=== PATIENT | male | born 1970 | race Caucasian/White ===

== ENCOUNTER 2019-10-27 13:26 | Outpatient (CLI) | payer OTHER, SELFPAY ==
--- NOTE | ~2019-10-27 | US_ITS ---
EXAMINATION: US art doppler w press LE BI DATE: 10/27/2019 14:16 INDICATION: Lateral lower extremity peripheral arterial occlusive disease with left toe numbness. Ris k factors of diabetes and hypercholesterolemia. TECHNIQUE: Segmental pressures and plethysmographic and Doppler waveforms of the brachial and lower e xtremity arteries were obtained. COMPARISON: None. FINDINGS: Right and left brachial artery pressures of 123 mm Hg and 131 mm Hg, respectively, are concordant (no rmal difference <= 30 mmHg). The right and left high-thigh pressure indices are 0.88 and 0.74, respec tively (normal > 1.2). The right ankle-brachial index (ABBY) is 0.97 (normal >= 0.9-1). The right great toe-brachial index (T BI) is 0.44 (normal >= 0.6-0.8). The right lower extremity segmental pressure gradients are normal (n ormal gradients <= 20-30 mmHg between adjacent levels on the same leg or the same levels on the two l egs). Arterial waveforms are triphasic at the right common femoral artery and biphasic in the more di stal arteries with brisk systolic upstrokes throughout. The left ABBY is 0.64. The left TBI is not assessed. The left lower extremity segmental pressure gradi ents are normal within the left lower limb but increased between the left [id number] popliteal ar kathleen, dorsalis pedis artery and posterior tibial artery relative to the contralateral arteries in the right lower leg. Arterial waveforms are biphasic throughout the arteries of the left lower limb. The systolic peaks appear dampened and broadened at the left superficial femoral and more distal arterie s relative to the arteries at the contralateral right lower limb however the systolic upstrokes remai n within normal limits. IMPRESSION: 1. Bilateral arterial occlusive disease with mildly decreased right TBI and with moderately decreased left ABBY. Reviewed, dictated and finalized at location A. T TURNER IMPRESSION: 1. Bilateral arterial occlusive disease with mildly decreased right TBI and wit h moderately decreased left ABBY.
== END 2019-10-27 13:27 | disposition home or self-care (01) ==
LOC: ANHIMG 13:29
PROVIDERS: PCP Family Medicine; Visit Provider Podiatrist Foot & Ankle Surgery
DX: I73.9 Peripheral vascular disease, unspecified (principal)
CPT/HCPCS: 93923

== ENCOUNTER 2021-05-05 01:35 | Day surgery (SDC) | payer OTHER, SELFPAY ==
[2021-04-26 13:18] VITALS: BMI 26.4
--- NOTE | 2021-05-04 11:24 | PM.HPGS ---
History of Present Illness History of Present Illness Consent: Risks, benefits, and alternatives have been discussed and questions answered. Patient agrees to proceed with procedure. Chief complaint: epigastric pain, neoplasm screening Narrative: Leodan Carranza Sr. is a 51 year old male who has had a great deal of abdominal discomfort with bloating and pressure sensation in the upper abdomen. He denies dysphagia or classic heartburn symptoms. He is due for colon cancer screening as well Review of Systems Review of Systems: All systems reviewed & are unremarkable except as noted in HPI and below PMFSH Past Medical History Medical History BMI 26.0-26.9,adult BMI 27.0-27.9,adult Stenosis of artery of left lower extremity Tobacco abuse Toe pain Family History Family History Father Family history of primary malignant neoplasm of liver Family history of malignant neoplasm Mother No problems noted. 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 Gender identity (if verbalized by the patient): Male Spiritual care concerns: No Meds Home Medications and Allergies Home Medications Medication Instructions Recorded Confirmed Type aspirin 81 mg tablet,delayed 81 mg PO DAILY 02/15/20 04/26/21 History release blood-glucose meter #1 ea 09/28/20 02/02/21 Rx lancets #100 ea 09/28/20 02/02/21 Rx montelukast 10 mg tablet 10 mg PO DAILY #90 tablet 10/05/20 04/26/21 Rx blood sugar diagnostic #50 ea 10/24/20 02/02/21 Rx flash glucose sensor #6 ea 11/02/20 02/02/21 Rx atorvastatin 20 mg tablet 20 mg PO DAILY #90 tablet 02/27/21 04/26/21 Rx empagliflozin [Jardiance] 25 mg PO DAILY 04/26/21 04/26/21 History Allergies Allergy/AdvReac Type Severity Reaction Status Date / Time No Known Allergies Allergy Verified 05/05/21 09:02 Exam Resp: Auscultation: clear to auscultation bilaterally Cardio: Rate: regular rate Rhythm: regular rhythm GI: GI Palp: Yes Soft to palpation and No Tenderness to palpation present (GI) Assessment and Plan Assessment and plan (1) Abdominal pain: Code(s): R10.9 - Unspecified abdominal pain Status: Acute Assessment and Plan: EGD with possible biopsy or dilatation or cautery. (2) Colon cancer screening: Code(s): Z12.11 - Encounter for screening for malignant neoplasm of colon Status: Acute Assessment and Plan: Colonoscopy with possible biopsy or polypectomy or cautery or injection of substances.
[2021-05-05 09:03] VITALS: BP 123/83; PULSE 83; RESP 18; TEMP 36.1; O2SAT 99; BMI 25.7
--- NOTE | 2021-05-05 09:05 | P.PNAN_ITS ---
Anes - Initial Pre Proc Eval Procedure: Operation Date: 05/05/21 09:30 Proposed Procedures p Esophagogastroduodenoscopy & Screening Colonoscopy - Stanley Ott MD Date/Time: 05/05/21 09:05 Surgeon: Stanley Ott MD Pre Op Diagnosis: epigastric pain, neoplasm screening Patient Data Age: 51 Gender: M Height: 1.8 m Weight: 83.8 kg Last Vital Signs Temp 36.1 C L 05/05/21 09:03 Pulse 83 05/05/21 09:03 Resp 18 05/05/21 09:03 BP 123/83 05/05/21 09:03 Pulse Ox 99 05/05/21 09:03 Allergies Allergy/AdvReac Type Severity Reaction Status Date / Time No Known Allergies Allergy Verified 05/05/21 09:02 Home Medications Medication Instructions Recorded Confirmed Type aspirin 81 mg tablet,delayed 81 mg PO DAILY 02/15/20 04/26/21 History release blood-glucose meter #1 ea 09/28/20 02/02/21 Rx lancets #100 ea 09/28/20 02/02/21 Rx montelukast 10 mg tablet 10 mg PO DAILY #90 tablet 10/05/20 04/26/21 Rx blood sugar diagnostic #50 ea 10/24/20 02/02/21 Rx flash glucose sensor #6 ea 11/02/20 02/02/21 Rx atorvastatin 20 mg tablet 20 mg PO DAILY #90 tablet 02/27/21 04/26/21 Rx empagliflozin [Jardiance] 25 mg PO DAILY 04/26/21 04/26/21 History Patient hx anesthesia problems: none Family hx anesthesia problems: none PMFSH Past Medical History Medical History BMI 26.0-26.9,adult BMI 27.0-27.9,adult Stenosis of artery of left lower extremity Tobacco abuse Toe pain Family History Family History Father Family history of primary malignant neoplasm of liver Family history of malignant neoplasm Mother No problems noted. 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 Questions were solicited and answers provided to the satisfaction of the patient/family/POA.
[2021-05-05] MEDS: LACTATED RINGERS 1,000 ML 150 ML IV CONT (09:10)
[2021-05-05 09:16] LABS: Glucose Point of Care 127 mg/dl (65-105)
--- NOTE | 2021-05-05 10:09 | SUR.OPER ---
EGD START 944, END 949 COLONOSCOPY START 954, END 1005
[2021-05-05 10:12] VITALS: BP 116/81; PULSE 69; RESP 17; O2SAT 95
[2021-05-05 10:21] VITALS: BP 124/81; PULSE 69; RESP 17; O2SAT 97
[2021-05-05 10:31] VITALS: BP 125/83; PULSE 67; RESP 17; O2SAT 100
== END 2021-05-05 10:55 | disposition home or self-care (01) ==
PROVIDERS: PCP Family Medicine; Visit Provider Internal Medicine Gastroenterology
PROC: 0DJ08ZZ Inspection of Upper Intestinal Tract, Via Natural or Artificial Opening Endoscopic (ICD-10-PCS; CPT 43235; principal; 2021-05-05 09:30)
DX: Z12.11 Encounter for screening for malignant neoplasm of colon (principal); D12.2 Benign neoplasm of ascending colon; R10.13 Epigastric pain; K21.00 Gastro-esophageal reflux disease with esophagitis, without bleeding; K29.60 Other gastritis without bleeding; K57.30 Diverticulosis of large intestine without perforation or abscess without bleeding; I70.202 Unspecified atherosclerosis of native arteries of extremities, left leg; Z87.891 Personal history of nicotine dependence; Z79.899 Other long term (current) drug therapy
CPT/HCPCS: 45385; 43239; 82948; 87081; 88305; J7120

== ENCOUNTER 2021-12-04 08:39 | Outpatient (CLI) | payer OTHER, SELFPAY ==
--- NOTE | ~2021-12-04 | US_ITS ---
EXAMINATION: US venous doppler LE BI EXAM DATE: 12/04/2021 11:00 INDICATION: I87.2 - Venous insufficiency (chronic) (peripheral). TECHNIQUE: Multiple grayscale, color flow and Doppler images of the lower extremity venous systems bi laterally were obtained and reviewed. Saphenous venous mapping. The exam was reviewed on 12/04/2021. There is no prior study for comparison. FINDINGS: Right side: The right common femoral, femoral and profunda veins demonstrate normal color flow, respi ratory variation, augmentation and compressibility. Compressibility, color flow confirmed within the right popliteal, posterior tibial, peroneal, and greater saphenous veins. Right Standing Venous Mapping: reflux seconds duration; vein size. Greater saphenous origin: 0 seconds; 4.6 mm. Greater saphenous mid thigh:------ 0 seconds; 1.7 mm. Greater saphenous below knee:--- 0 seconds; 1.4 mm. Lesser saphenous proximally:------ 0 seconds; 1.6 mm. Lesser saphenous distally: 0 seconds; 1.9 mm. Left side: The left common femoral, femoral and profunda veins demonstrate normal color flow, respira tory variation, augmentation and compressibility. Compressibility, color flow confirmed within the l eft popliteal, posterior tibial, peroneal, and greater saphenous veins. Left Standing Venous Mapping: reflux seconds duration; vein size. Greater saphenous origin: 0 seconds; 3.1 mm. Greater saphenous mid thigh:------ 0 seconds; 2.7 mm. Greater saphenous below knee:--- 0 seconds; 1.8 mm. Lesser saphenous proximally:------ 0 seconds; 2.7 mm. Lesser saphenous distally: 0 seconds; 1.6 mm. IMPRESSION: 1. No lower extremity deep venous thrombosis bilaterally. 2. Venous measurements as above. No reflux demonstrated. Reviewed, dictated and finalized at location B.
--- NOTE | ~2021-12-04 | US_ITS ---
EXAMINATION: US arterial ankle brachial ind EXAM DATE: 12/04/2021 11:01 INDICATION: Z82.49 - Family history of ischemic heart disease and oth... Leg pain, cramping. TECHNIQUE: Segmental pressures and plethysmographic and Doppler waveforms of the brachial and lower e xtremity arteries were obtained. There is no prior study for comparison. FINDINGS: Right and left brachial artery pressures of 126 mm Hg and 120 mm Hg, respectively, are concordant (no rmal difference <= 30 mmHg). RIGHT LEG: The ankle-brachial index (ABBY) is 1.03 (normal >= 0.9-1). The great toe-brachial index (TBI) is 0.68 (normal >= 0.65). The lower extremity ratios, segmental pressure gradients as follows; Dorsalis pedis: 0.98 (124 mmHg). Posterior tibial: 1.03 (130 mmHg). (Normal gradients <= 20-30 mmHg between adjacent levels on the same leg or the same levels on the two legs). Arterial waveforms are biphasic DP, monophasic PT. LEFT LEG: The ankle-brachial index (ABBY) is 1.09 (normal >= 0.9-1). The great toe-brachial index (TBI) is 0.22 (normal >= 0.65). The lower extremity ratios, segmental pressure gradients as follows; Dorsalis pedis: 0.89 (112 mmHg). Posterior tibial: 1.09 (137 mmHg). (Normal gradients <= 20-30 mmHg between adjacent levels on the same leg or the same levels on the two legs). Arterial waveforms are biphasic. IMPRESSION: 1. Right ankle-brachial index 1.03, normal. 2. Left ankle-brachial index 1.09, normal. 3. Segmental pressures as above. Reviewed, dictated and finalized at location B.
--- NOTE | ~2021-12-04 | US_ITS ---
EXAMINATION: US abdomen complete EXAM DATE: 12/04/2021 10:57 INDICATION: K76.0 - Fatty (change of) liver, not elsewhere classified TECHNIQUE: Multiple grayscale and Doppler images of the complete abdomen were obtained (by a technolo gist who performed the scan) and subsequently reviewed. Comparison is made to prior examination from 04/20/2016. FINDINGS: The abdominal aorta is normal in caliber. Visualized portion IVC is patent. The pancreatic head a nd body are normal in appearance. The pancreatic tail is not visualized. Mildly echogenic liver parenchyma, hepatic steatosis. There are no focal liver lesions identified. There is no evidence of intrahepatic biliary duct dilation. Portal venous flow was seen in the hepa topedal, normal direction and has normal Doppler waveform. Common bile duct measures 3 mm, which is normal. The gallbladder wall is normal in thickness, with ex pected amount of distention. No sonographic evidence of pericholecystic fluid. There is no cholelit hiases. Technologist performing exam reports patient did not demonstrate sonographic Calles's sign. Please note that this sign is less reliable in patients who have received pain medication. Right kidney: There is normal contour and echogenicity. It measures 11.9 x 3.6 x 5.3 centimeters. There are no focal renal lesions identified. There is no hydronephrosis. Left kidney: There is normal contour and echogenicity. It measures 12.3 x 4.6 x 5.9 centimeters. T here are no focal renal lesions identified. There is no hydronephrosis. The spleen measures 13.1 centimeters and is morphologically normal. IMPRESSION: Hepatic steatosis. Reviewed, dictated and finalized at location B. IMPRESSION: Hepatic steatosis.
== END 2021-12-04 08:40 | disposition home or self-care (01) ==
LOC: ANHIMG 08:41
PROVIDERS: PCP Family Medicine; Visit Provider Nurse Practitioner Family
DX: K76.0 Fatty (change of) liver, not elsewhere classified (principal); I87.2 Venous insufficiency (chronic) (peripheral); I70.202 Unspecified atherosclerosis of native arteries of extremities, left leg; Z82.49 Family history of ischemic heart disease and other diseases of the circulatory system
CPT/HCPCS: 76700; 93922; 93970

== ENCOUNTER 2023-01-10 10:37 | Inpatient (IN) | payer OTHER, SELFPAY ==
[2023-01-10] VITALS (24 sets, daily range): BP systolic 102–173; BP diastolic 68–100; PULSE 68–85; RESP 14–24; TEMP 36.6–37.1; O2SAT 94–100; BMI 27.9
--- NOTE | 2023-01-10 | ECHO_ITS ---
Patient Info Name: Leodan Carranza Age: 52 years : 1970 Gender: Male Ht: 71 in Wt: 195 lbs BSA: 2.12 m2 HR: 85 bpm BP: 107 / 89 mmHg Heart Rhythm: Sinus Rhythm Technical Quality: Fair Exam Date: 01/10/2023 3:37 PM Exam Location: [facility] Pulmonary Exam Room: ICU10 Patient Status: Inpatient Admit Date: 01/10/2023 Staff Ordering Physician: Sherif Silva MD (bre/renan) Permastone Mechanic: ICU Attending Provider: Sherif Silva MD (bre/renan) Referring Physician: Ricardo ARAUJO; Exam Type: CA echo dop color flow w con Study Info Indications - S/P STEMI Complete two-dimensional, color flow and Doppler transthoracic echocardiogram is performed with contrast to opacify the left ventricle and to improve the deliniation of the left ventricle endocardial borders. Contrast/Agitated Saline Contrast/Ag. Saline: Definity Amount: 2.00 ml Administered By: Roxanne Burnham Existing IV Access: Yes IV Access Condition: patent with no signs of infiltration Summary 1. Left ventricular chamber dimension is normal. 2. Left ventricular systolic function is moderately reduced, estimated at 40-45%. 3. There is mildly increased left ventricular wall thickness. 4. The left ventricular diastolic function is grade I diastolic dysfunction. 5. The inferior wall, basal inferoseptal, mid inferoseptal, basal inferolateral wall, and mid inferolateral wall are hypokinetic. 6. There is mild mitral valve regurgitation. 7. There is mild tricuspid valve regurgitation. Left Ventricle Left ventricular chamber dimension is normal. Left ventricular systolic function is moderately reduced, estimated at 40-45%. There is mildly increased left ventricular wall thickness. The left ventricular diastolic function is grade I diastolic dysfunction. The inferior wall, basal inferoseptal, mid inferoseptal, basal inferolateral wall, and mid inferolateral wall are hypokinetic. All other lawrence appear normal. Right Ventricle Right ventricular chamber dimension is normal. Right ventricular systolic function is normal. Left Atria Left atrial chamber dimension is normal. Right Atria Right atrial chamber dimension is normal. Atrial Septum Intact interatrial septum visualized by color flow imaging. Aortic Valve The aortic valve is trileaflet. There is mild aortic valve sclerosis. There is no aortic valve stenosis. There is trace aortic valve regurgitation. Pulmonic Valve The pulmonic valve is normal. There is no pulmonic valve stenosis. There is trace pulmonic regurgitation. Mitral Valve The mitral valve has normal leaflets. There is no mitral valve stenosis. There is mild mitral valve regurgitation. Tricuspid Valve The tricuspid valve leaflets are normal. There is no significant tricuspid valve stenosis. There is mild tricuspid valve regurgitation. No pulmonary hypertension, estimated pulmonary arterial systolic pressure is 20 mmHg. Pericardium/Pleural The pericardium appears normal. There is no pericardial effusion. Inferior Vena Cava Normal inferior vena cava with >50% collapse upon inspiration consistent with normal right atrial pressure, 10 mmHg. Aorta The aortic root size at the sinus of Valsalva is normal. The prox ascending aorta size is normal. Left Ventricular Outflow Tract Name Value Normal LVOT 2D
--- NOTE | 2023-01-10 10:38 | ECG_ITS ---
Measurements Intervals [place] Rate: 78 P: 54 [place]: 174 QRS: 72 QRSD: 107 T: 87 QT: 361 QTc: 414 Interpretive Statements SINUS RHYTHM BORDERLINE R WAVE PROGRESSION, ANTERIOR LEADS INFERIOR ST ELEVATION MYOCARDIAL INJURY- ACUTE POSTERIOR INFARCT- ACUTE ABNORMAL ECG NO PREVIOUS ECG AVAILABLE FOR COMPARISON Electronically Signed On 01-10-2023 11:47:53 CDT by Noel Galicia D.O.
[2023-01-10] MEDS: ASPIRIN 81 MG CHEWABLE TABLET 324 MG PO (10:48)
--- NOTE | 2023-01-10 10:51 | ED.CHESTPAIN ---
HPI - Chest Pain General Chief Complaint: Chest Pain Stated Complaint: cp Time Seen by Provider: 01/10/23 10:41 History of Present Illness HPI narrative: Patient is a 52-year-old male who presents ER with chest pain. Began 45 minutes prior to arrival. He was drinking when he had sudden onset sharp chest pain. No radiation. No nausea or vomiting. 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 They had not yet been contacted about any additional follow-up. When symptoms arose that he felt he needed to be evaluated and came to the closest hospital. No aggravating or alleviating factors. He has been having intermittent chest pain over the last week. Patient has history of left iliac stent. Related Data Home Medications Medication Instructions Recorded Confirmed aspirin 81 mg tablet,delayed 81 mg PO DAILY 02/15/20 08/30/22 release (Adult Aspirin Regimen) Allergies Allergy/AdvReac Type Severity Reaction Status Date / Time No Known Allergies Allergy Verified 01/10/23 10:47 Review of Systems Review of Systems: All systems reviewed & are unremarkable except as noted in HPI and below Constitutional: Constitutional: Denies chills and Denies fever(s) Cardiovascular: Cardiovascular: Reports chest pain, Denies rapid heart rate and Denies radiating jaw, neck or arm pain Respiratory: Respiratory: Denies cough and Denies dyspnea Gastrointestinal: Gastrointestinal: Denies abdominal pain, Denies nausea and Denies vomiting Neurologic: Denies focal weakness and Denies numbness PMFSH Past Medical History Medical History (Updated 01/10/23 @ 10:56 by Ajit Manning MD) Hypertriglyceridemia IBD (inflammatory bowel disease) PAD (peripheral artery disease) Stenosis of artery of left lower extremity Tobacco abuse Toe pain Family History Family History Father Family history of primary malignant neoplasm of liver Family history of malignant neoplasm Mother No problems noted. Sibling Aneurysm Other Diabetes mellitus Family history of cardiovascular disease Hypertension Social History Social History Smoking packs per day: 1.5 Smoking cigarettes per day: 30.0 Years smoked: 35 Smoking pack-years: 52.50 Smoking status: Smoker, status unknown Tobacco type: cigarettes Second hand tobacco smoke exposure: Yes Alcohol intake: never Substance use: never Substance use type: does not use Lack of Transportation: No Lack of Food: Never True Current Housing: I Have Housing Concerned About Future Housing: No Difficulty Paying Gas/Electric Bills: No Difficulty Paying for Meds: No Currently Unemployed: No Education: High School Diploma/GED Difficulty w/ Childcare or Family Care: No Living arrangements: with family Occupation/Education: occupation 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 HEAD: Normocephalic, atraumatic. EYES: PERRL and EOMI. ENT: Mucous membranes moist. CHEST: Clear to auscultation. No respiratory distress. HEART: Regular rate and rhythm. Normal peripheral pulses. ABDOMEN: Soft, nontender, nondistended. EXTREMITIES: Normal range of motion. No edema. SKIN: Warm, dry, no rash. NEURO: Alert and oriented x3. PSYCH: Normal mood and affect. Course Course Emergency Course: STEMI activation made upon receiving EKG. Dr. Silva at bedside and will take patient to Business Continuity Analyst. Patient will receive oral Brilinta/aspirin and also IV heparin. at bedside and educated on treatment plan. Vital Signs Vital signs: Vital Signs Temperature 98.0 F 01/10/23 10:41 Pulse Rate 78 01/10/23 10:
--- NOTE | 2023-01-10 10:54 | PC.NURSE ---
To cardiac labor service representative with cath team.
[2023-01-10 10:57] LABS: Basophils Absolute Auto 0.1 K/mm3 (0.0-0.1); Basophils Percent Auto 0.8 % (0.2-1.2); Eosinophils Absolute Auto 0.3 K/mm3 (0-0.3); Eosinophils Percent Auto 2.6 % (0-4.4); Hematocrit 47.6 % (42.0-52.0); Hemoglobin 16.4 g/dL (14.0-18.0); Immature Granulocyte Absolute 0.04 K/mm3 (0.00-0.031); Immature Granulocyte Percent A 0.4 % (0-0.5); Lymphocytes Absolute Auto 3.08 K/mm3 (0.9-3.2); Mean Corpuscular HGB Conc 34.5 g/dl (32-36); Mean Corpuscular Hemoglobin 33.7 pg (26-34); Mean Corpuscular Volume 97.9 fl (80-100); Mean Platelet Volume 9.4 fl (7.4-10.4); Monocytes Absolute Auto 0.9 K/mm3 (0.1-0.6); Monocytes Percent Auto 8.2 % (2.6-8.5); Neutrophils Absolute Auto 6.3 K/mm3 (1.3-6.7); Platelet Count Result 257 k/mm3 (150-375); Red Blood Count 4.86 M/mm3 (4.6-6.20); Red Cell Distribution Width 13.2 % (11.5-14.5); White Blood Count 10.6 K/mm3 (4.5-10.0)
--- NOTE | 2023-01-10 10:59 | PM.IMHP ---
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 He had a stress test a couple days ago which was reportedly abnormal. He states that he has been having off and on chest pressure about 3 weeks. Chest pressure has been occurring with and without activity lasting for less than 1 minute. Since his stress test however he is had significantly more severe and longer lasting pain in his chest and it does radiate into his back. This morning he had chest pain that was severe, sharp and radiating to his back that started about an hour to hour and half ago. He was also diaphoretic, short of breath. He denies any recent syncope, paroxysmal nocturnal dyspnea, orthopnea, edema, palpitations. Came to the ER where he was found have inferior posterior ST-elevation. STEMI was called. I saw the patient in ER. He is currently pain-free Review of Systems Review of Systems: All systems reviewed & are unremarkable except as noted in HPI and below Constitutional: Constitutional: Denies body ache(s) Eyes: Eyes: Denies blurry vision ENT: Reports Normal hearing present Cardiovascular: Cardiovascular: Reports chest pain and Reports diaphoresis Respiratory: Respiratory: Denies chest congestion Gastrointestinal: Gastrointestinal: Denies abdominal pain Genitourinary: Genitourinary: Denies hematuria Musculoskeletal: Musculoskeletal: Denies back pain Integumentary/Breasts: Skin/Breast: Denies dry skin Neurologic: Denies Abnormal speech present Psychiatric: Psychiatric: Reports anxiety Endocrine: Endocrine: Denies flushing Hematologic/Lymphatic: Hematologic/Lymphatic: Denies easy bleeding Allergic/Immunologic: Allergic/Immunologic: Denies GI upset with certain foods and Denies tongue swelling PMFSH Past Medical History Medical History Hypertriglyceridemia IBD (inflammatory bowel disease) PAD (peripheral artery disease) Stenosis of artery of left lower extremity Tobacco abuse Toe pain Family History Family History Father Family history of primary malignant neoplasm of liver Family history of malignant neoplasm Mother No problems noted. Sibling Aneurysm Other Diabetes mellitus Family history of cardiovascular disease Hypertension Social History Social History Smoking packs per day: 1.5 Smoking cigarettes per day: 30.0 Years smoked: 35 Smoking pack-years: 52.50 Smoking status: Smoker, status unknown Tobacco type: cigarettes Second hand tobacco smoke exposure: Yes Alcohol intake: never Substance use: never Substance use type: does not use Lack of Transportation: No Lack of Food: Never True Current Housing: I Have Housing Concerned About Future Housing: No Difficulty Paying Gas/Electric Bills: No Difficulty Paying for Meds: No Currently Unemployed: No Education: High School Diploma/GED Difficulty w/ Childcare or Family Care: No Living arrangements: with family Occupation/Education: occupation 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
[2023-01-10 11:06] LABS: Alanine Aminotransferase 42 U/L (6-50); Albumin Level 4.8 g/dL (3.5-5.1); Alkaline Phosphatase 124 U/L (38-126); Anion Gap 9 mmol/L (8-16); Aspartate Amino Transferase 33 U/L (17-59); Bilirubin,Total 0.6 mg/dL (0.2-1.3); Blood Urea Nitrogen 12 mg/dL (9-20); Calcium 9.7 mg/dL (8.4-10.2); Carbon Dioxide 28 mmol/L (22-30); Chloride 102 mmol/L (98-107); Estimated Glomerular Filt Rate > 60; Glucose 139 mg/dL (65-110); Lipase 340 U/L (23-300); Potassium 4.1 mmol/L (3.4-5.0); Sodium 139 mmol/L (137-145)
[2023-01-10 11:07] LABS: INR 0.9; Prothrombin Time 12.7 Seconds (11.1-14.7)
[2023-01-10 11:08] LABS: Partial Thromboplastin Time 32.1 SECONDS (22.3-36.8)
[2023-01-10 11:21] LABS: Troponin I 0.039 ng/mL (0.000-0.034)
[2023-01-10] MEDS: SODIUM CHLORIDE 0.9% IV 1,000 ML 125 ML IV CONT (13:15)
[2023-01-10 13:17] LABS: Cholesterol 145 mg/dL (0-200); HDL Direct 43 mg/dL; Triglycerides 123 mg/dL (<150)
--- NOTE | 2023-01-10 13:17 | PC.NURSE ---
This patient, Leodan Carranza , was admitted to Intensive Care Unit-10. Patient/family oriented to hospital policies and general routines including ID bracelet, bed and alarms, visiting hours, pain management, procedures, bathroom and other care routines, personal items, smoking policy, room service/diet, and visiting hours. Information on how to activate the Rapid Response Team has been discussed. Patient/Family are encouraged to report perceived risks to care and to ask questions if they do not understand what they are told or what they should do.
[2023-01-10 13:24] LABS: Hemoglobin A1C 6.8 % (<5.7)
[2023-01-10 13:27] LABS: LDL Cholesterol Direct 81 mg/dL
--- NOTE | 2023-01-10 13:34 | WPDCNINT ---
Assessment and Plan Assessment and plan (1) ST elevation (STEMI) myocardial infarction: Code(s): I21.3 - ST elevation (STEMI) myocardial infarction of unspecified site Status: Acute Assessment and Plan: Patient presented with chest pain, radiating by oxygen with shortness of breath and diaphoresis. EKG in the ER showed inferior ST-elevation NH. patient was taken to the cardiac labor relations specialist where he had PTCA/PCI with RADHA x1 to the RCA. -cardiology following the patient -continue aspirin, atorvastatin, Brilinta -echocardiogram has been ordered (2) PAD (peripheral artery disease): Code(s): I73.9 - Peripheral vascular disease, unspecified Status: Acute Assessment and Plan: History of left lower extremity stenting (3) Hyperlipidemia associated with type 2 diabetes mellitus: Code(s): E11.69 - Type 2 diabetes mellitus with other specified complication; E78.5 - Hyperlipidemia, unspecified Status: Acute Assessment and Plan: Will order Accu-Cheks and sliding scale insulin (4) Tobacco use disorder: Code(s): F17.200 - Nicotine dependence, unspecified, uncomplicated Status: Acute Assessment and Plan: Patient states he quit smoking 2 months ago Plan DVT prophylaxis: Status post cardiac catheterization Stress ulcer prophylaxis: Protonix due to patient having heartburn Nutrition: Heart healthy diet Code Status: Full code Critical Care Time Spent: 48 minutes Discussed with patient and his at bedside and updated them with the plan of care. The was asking if the good ultrasound of the heart to which has did tell him that it has been ordered and should be done either today or tomorrow. I answered all questions Due to a high probability of clinically significant, life threatening deterioration, the patient required my highest level of preparedness to intervene emergently and I personally spent this critical care time directly and personally managing the patient. This critical care time included obtaining a history; examining the patient; pulse oximetry; ordering and review of studies; arranging urgent treatment with development of a management plan; evaluation of patient's response to treatment; frequent reassessment; and discussions with other providers. It was exclusive of separately billable procedures and treating other patients and teaching time. Please see Assessment and Plan section and the rest of the note for further information on patient assessment and treatment This dictation may have been done utilizing a voice recognition system. Attempts have been made to correct errors. However, there may be uncorrected grammatical, spelling, and recognitions errors present. Electronic Warfare Specialist Consult Note Consult date: 01/10/23 Reason for consult: Inferior wall STEMI, chest pain HPI: Leodan Carranza Sr. is a 52 year old male with past medical history of hypertriglyceridemia, inflammatory bowel disease, peripheral artery disease, stent is of artery of left lower extremity, tobacco use presented the ED on 01/10/2023 with complaints of chest pain which worsened early this morning. Patient complained of chest pressure which was radiating to the back and started an hour and a half prior to arrival to the patient also complained of shortness of breath and diaphoresis. EKG in the ER showed inferior posterior ST-elevation NH, code STEMI was called and patient was taken to the cardiac labor relations specialist. Patient had a PTCA/PCI with RADHA x1 to the RCA. According to the rim buster, it was a challenging case as his RCA was calcified. -off note: Patient has had on and off chest pain/pressure about 3 weeks and had recent stress test at [facility] a couple of days ago which was reported abnormal. Patient seen and examined the ICU upon arrival, pleasant gentleman, in no acute distress. Denies any chest pain, shortness a breath or abdominal pain. Continues to have some burning sensat
[2023-01-10] MEDS: PANTOPRAZOLE SODIUM IV 40 MG VIAL IV PUSH (13:55)
[2023-01-10 14:42] LABS: Glucose Point of Care 100 mg/dl (65-105)
--- NOTE | 2023-01-10 14:50 | WPDMODSED ---
Moderate Sedation Note-Pt Data Patient Data Diagnosis: Inferior STEMI Present Complaint: Inferior STEMI Procedure to be performed/Plan: Primary PCI Allergies Allergy/AdvReac Type Severity Reaction Status Date / Time No Known Allergies Allergy Verified 01/10/23 10:47 Home Medications Medication Instructions Recorded Confirmed Type aspirin 81 mg tablet,delayed 81 mg PO DAILY 02/15/20 01/10/23 History release (Adult Aspirin Regimen) blood-glucose meter #1 ea 09/28/20 08/30/22 Rx lancets #100 ea 09/28/20 08/30/22 Rx blood sugar diagnostic (Blood #50 ea 10/24/20 08/30/22 Rx Glucose Test strips) flash glucose sensor (FreeStyle #6 ea 11/02/20 08/30/22 Rx Soni 2 Sensor kit) empagliflozin 25 mg tablet 25 mg PO DAILY #1 tablet 08/30/22 01/10/23 Rx (Jardiance) atorvastatin 40 mg tablet 40 mg PO DAILY 01/10/23 01/10/23 History dulaglutide 3 mg/0.5 mL 3 mg subcut WEEKLY 01/10/23 01/10/23 History subcutaneous pen injector (Trulicity) glimepiride 2 mg tablet 2 mg PO DAILY 01/10/23 01/10/23 History montelukast 10 mg tablet 10 mg PO HS 01/10/23 01/10/23 History (Singulair) pramipexole 0.5 mg tablet 0.5 mg PO HS 01/10/23 01/10/23 History Current Medications: Active Medications Aspirin (Aspirin 81 Mg Enteric Tablet) 81 mg PO QAM JOSÉ LUIS Atorvastatin Calcium (Atorvastatin 40 Mg Tablet) 80 mg PO DAILY JOSÉ LUIS Dextrose (Dextrose 50% 25 Gm/50 Ml Syringe) 12.5 gm IV PUSH PRN PRN; Protocol PRN Reason: Hypoglycemia Glucagon (Glucagon For Inj 1 Mg Vial) 1 mg IM PRN PRN; Protocol PRN Reason: Hypoglycemia Glucose (Glucose Oral Gel 15 Gm Of Glucse In 37.5 Gm Tube) 15 gm PO PRN PRN; Protocol PRN Reason: Hypoglycemia Sodium Chloride (Normal Saline Iv) 1,000 mls @ 125 mls/hr IV CONT .Q8H ONE Stop: 01/10/23 20:54 Last Admin: 01/10/23 13:15 Dose: 125 mls/hr Dextrose (Dextrose 5% 1,000 Ml) 1,000 mls @ 100 mls/hr IVPB PRN PRN; Protocol PRN Reason: Hypoglycemia Insulin Aspart (Insulin Aspart (*Bkc) 100 Units/Ml) 3 - 6 units SUB-Q TIDWM JOSÉ LUIS; Protocol Pantoprazole Sodium (Pantoprazole Sodium Iv 40 Mg Vial) 40 mg IV PUSH QAM JOSÉ LUIS Perflutren Lipid Microsphere (Perflutren Lipid Microspheres 1.5 Ml Vial Diluted To 10 Ml Total Volume) 0 ml IV PUSH ONCE PRN; Protocol PRN Reason: adequate visualization Stop: 01/12/23 12:57 Ticagrelor (Ticagrelor 90 Mg Tablet) 90 mg PO Q12HR JOSÉ LUIS Sedation/Anesthesia: No previous sedation/anesthesia problems (including family history). [facility] Past Medical History Medical History Hypertriglyceridemia IBD (inflammatory bowel disease) PAD (peripheral artery disease) Stenosis of artery of left lower extremity Tobacco abuse Toe pain Family History Family History Father Family history of primary malignant neoplasm of liver Family history of malignant neoplasm Mother No problems noted. Sibling Aneurysm Other Diabetes mellitus Family history of cardiovascular disease Hypertension Social History Social History Smoking packs per day: 1.5 Smoking cigarettes per day: 30.0 Years smoked: 35 Smoking pack-years: 52.50 Smoking status: Former smoker Second hand tobacco smoke exposure: Yes Alcohol intake: never Substance use: never Substance use type: does not use Lack of Transportation: No Lack of Food: Never True Current Housing: I Have Housing Concerned About Future Housing: No Difficulty Paying Gas/Electric Bills: No Difficulty Paying for Meds: No Currently Unemployed: No Education: Don't Know Difficulty w/ Childcare or Family Care: No Living arrangements: with family Occupation/Education: occupation 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
--- NOTE | 2023-01-10 14:51 | WPDCARDPROC ---
Cardiac Cath Procedure Note Date of procedure:: 01/10/23 Performing physician:: CATHETERIZATION LABORATORY REPORT Procedure Date: 01/10/2023 [facility]: Sherif Silva M.D., [facility]? Referring Physician: Ajit Manning M.D. ([facility]) Anesthesia: Versed and Fentanyl were ordered and given in my presence at 11:08, procedure ended at 12:48. Supervision of nurse monitored moderate sedation with Versed and Fentanyl was provided for 100minutes. Total of Versed 2mg and Fentanyl 50mcg were administered by the Tomato Grader RN Leonie Montgomery. Pre-op Diagnosis: Inferior STEMI Post-op Diagnosis: Calcific 99% stenosis of the mid RCA s/p PCI with placement of RADHA x 1 Mild non-obstructive disease of the mid LAD Procedure(s): 1. Moderate sedation 2. Ultrasound-guided access of the right radial artery 3. Coronary angiography 4. PCI of the mid RCA with RADHA x 1 Access Site: Right radial artery Brief History and Clinical Indications: Patient is a 52 year old male with diabetes and peripheral vascular disease who is referred for emergent cardiac cath for inferior STEMI. All risks, benefits and alternatives to left heart catheterization with or without percutaneous coronary intervention was discussed at length with the patient. Risk of complications including but not limited to bleeding, infection, arrhythmia, stroke, worsening kidney function, blood loss, groin hematoma, limb loss, emergency coronary artery bypass grafting, and even were discussed with the patient and all questions were answered. The patient understood and wished to proceed. Time out called, patient name, date of , medical record number, allergies, procedure performed, identify [facility], patient and staff member concurred with accurate data, procedure carried on. Findings: LEFT HEART CATHETERIZATION FINDINGS: 1. Left main: Calcifications seen in the left main. The left main coronary artery is widely patent without any significant obstructive disease. 2. Left anterior descending: Calcifications seen in the proximal-mid LAD. The mid LAD has a focal 40% calcific stenosis. Remainder of the LAD has luminal irregularities. The first diagonal branch has mild disease without any significant obstructive angiographic disease. 3. Left circumflex: The left circumflex artery and the main marginal branches have mild luminal irregularities without any significant obstructive angiographic disease. 4. Right coronary artery: The RCA is the dominant vessel. Calcifications seen throughout the RCA. The proximal RCA has luminal irregularities. There is a tortuous bend in the RCA after the proximal segment. The mid RCA has a calcific 99% stenosis. There is MARYCARMEN 2 flow distally in the vessel. Remainder of the RCA without obstructive disease. Description of Procedure and PCI: Patient transferred to dye lab technician room. Prepped and draped in usual sterile fashion. 2% lidocaine injected subcutaneously in right wrist area. 22-gauge venipuncture catheter used to access the right radial artery with the Seldinger technique. 6-FR slender sheath placed in right radial artery. Nitroglycerine and Verapamil were given intraarterial through the sheath. Versacore wire advanced under fluoroscopy 5F Tig 4 diagnostic catheter engaged Left Main Coronary Artery. 5F Tig 4 diagnostic catheter engaged Right Coronary Artery Multiple orthogonal angiogram obtained and reviewed Hemostasis was achieved by application of TR band. Angiomax used for anticoagulation. 6F JR 4 guide catheter was used to intubate the RCA. 0.014 [place] coronary wire was passed in to the distal RCA. The lesion was pre-dilated with a 2.5mm x 15mm balloon inflated to high KASSANRDA. Multiple balloon inflations done. IVUS catheter was advanced into the proximal RCA, but we were unable to advance the IVUS catheter past the proximal tortuosity without losing guide support. From the IVUS images we did obtain proximal to the culprit lesion,
[2023-01-10] MEDS: PERFLUTREN LIPID MICROSPHERES 1.5 ML VIAL DILUTED TO 10 ML TOTAL VOLUME IV PUSH (16:15)
[2023-01-10 19:28] LABS: Glucose Point of Care 143 mg/dl (65-105)
[2023-01-10] MEDS: TICAGRELOR 90 MG TABLET PO (21:57)
[2023-01-10] MEDS: PRAMIPEXOLE 0.5 MG TABLET PO (21:57)
[2023-01-11] VITALS (20 sets, daily range): BP systolic 105–136; BP diastolic 66–92; PULSE 66–104; RESP 11–21; TEMP 36.3–37.3; O2SAT 91–97
[2023-01-11 04:43] LABS: Basophils Absolute Auto 0.1 K/mm3 (0.0-0.1); Basophils Percent Auto 0.5 % (0.2-1.2); Eosinophils Absolute Auto 0.2 K/mm3 (0-0.3); Eosinophils Percent Auto 1.9 % (0-4.4); Hematocrit 45.8 % (42.0-52.0); Hemoglobin 15.6 g/dL (14.0-18.0); Immature Granulocyte Absolute 0.03 K/mm3 (0.00-0.031); Immature Granulocyte Percent A 0.3 % (0-0.5); Lymphocytes Percent Auto 22.2 % (18.3-44.2); Mean Corpuscular HGB Conc 34.1 g/dl (32-36); Mean Corpuscular Hemoglobin 33.5 pg (26-34); Mean Corpuscular Volume 98.3 fl (80-100); Mean Platelet Volume 9.5 fl (7.4-10.4); Monocytes Absolute Auto 0.7 K/mm3 (0.1-0.6); Monocytes Percent Auto 6.4 % (2.6-8.5); Neutrophils Absolute Auto 7.8 K/mm3 (1.3-6.7); Neutrophils Percent Auto 68.7 % (45.5-73.1); Platelet Count Result 229 k/mm3 (150-375); Red Blood Count 4.66 M/mm3 (4.6-6.20); Red Cell Distribution Width 13.2 % (11.5-14.5); White Blood Count 11.3 K/mm3 (4.5-10.0)
[2023-01-11 05:00] LABS: Alanine Aminotransferase 41 U/L (6-50); Albumin Level 4.6 g/dL (3.5-5.1); Alkaline Phosphatase 100 U/L (38-126); Anion Gap 8 mmol/L (8-16); Aspartate Amino Transferase 58 U/L (17-59); Bilirubin,Total 0.7 mg/dL (0.2-1.3); Blood Urea Nitrogen 9 mg/dL (9-20); Calcium 9.1 mg/dL (8.4-10.2); Carbon Dioxide 22 mmol/L (22-30); Chloride 108 mmol/L (98-107); Estimated CRCL calculation 115 ml/min; Estimated Glomerular Filt Rate > 60; Glucose 120 mg/dL (65-110); Magnesium 2.2 mg/dL (1.6-2.3); Phosphorus 3.6 mg/dL (2.5-4.5); Potassium 4.2 mmol/L (3.4-5.0); Sodium 138 mmol/L (137-145)
[2023-01-11] MEDS: ASPIRIN 81 MG ENTERIC TABLET PO (08:07)
[2023-01-11] MEDS: TICAGRELOR 90 MG TABLET PO ×2 (08:07→20:16)
[2023-01-11] MEDS: PANTOPRAZOLE SODIUM IV 40 MG VIAL IV PUSH (08:07)
[2023-01-11] MEDS: ATORVASTATIN 40 MG TABLET 80 MG PO (08:07)
[2023-01-11 08:10] LABS: Glucose Point of Care 138 mg/dl (65-105)
[2023-01-11 11:53] LABS: Glucose Point of Care 163 mg/dl (65-105)
--- NOTE | 2023-01-11 12:16 | WPDINTPN ---
Progress Note: A&P Assessment and Plan (1) ST elevation (STEMI) myocardial infarction: Code(s): I21.3 - ST elevation (STEMI) myocardial infarction of unspecified site Status: Acute Assessment and Plan: Patient presented with chest pain, radiating by oxygen with shortness of breath and diaphoresis. EKG in the ER showed inferior ST-elevation [place]. patient was taken to the cardiac biology laboratory assistant where he had PTCA/PCI with RADHA x1 to the RCA. -cardiology following the patient -continue aspirin, atorvastatin, Brilinta 01/10/2023 echocardiogram: LV systolic function moderately reduced, EF 40-45%, grade 1 diastolic dysfunction, ?inferior wall, basal inferoseptal, mid inferoseptal, and mid inferolateral wall are hypokinetic (2) PAD (peripheral artery disease): Code(s): I73.9 - Peripheral vascular disease, unspecified Status: Acute Assessment and Plan: History of left lower extremity stenting (3) Hyperlipidemia associated with type 2 diabetes mellitus: Code(s): E11.69 - Type 2 diabetes mellitus with other specified complication; E78.5 - Hyperlipidemia, unspecified Status: Acute Assessment and Plan: Continue Accu-Cheks and sliding scale insulin -hemoglobin A1c 6.8 this admission (4) Tobacco use disorder: Code(s): F17.200 - Nicotine dependence, unspecified, uncomplicated Status: Acute Assessment and Plan: Patient states he quit smoking 2 months ago Plan DVT prophylaxis: Status post cardiac catheterization Stress ulcer prophylaxis: Protonix Nutrition: Heart healthy diet Code Status: Full code Critical Care Time Spent: 32 minutes Discussed with patient and his at bedside and updated them with the plan of care. The was asking if the good ultrasound of the heart to which has did tell him that it has been ordered and should be done either today or tomorrow. I answered all questions Due to a high probability of clinically significant, life threatening deterioration, the patient required my highest level of preparedness to intervene emergently and I personally spent this critical care time directly and personally managing the patient. This critical care time included obtaining a history; examining the patient; pulse oximetry; ordering and review of studies; arranging urgent treatment with development of a management plan; evaluation of patient's response to treatment; frequent reassessment; and discussions with other providers. It was exclusive of separately billable procedures and treating other patients and teaching time. Please see Assessment and Plan section and the rest of the note for further information on patient assessment and treatment This dictation may have been done utilizing a voice recognition system. Attempts have been made to correct errors. However, there may be uncorrected grammatical, spelling, and recognitions errors present. Subjective Date/time seen: 01/11/23 12:16 Interval history: Reason for consult: Inferior wall STEMI, chest pain status post RADHA x1 to mid RCA 01/11/2023: Patient seen and examined this morning in the ICU, is awake, alert, oriented. Denies any chest pain, shortness with, nausea, vomiting, abdominal pain. Hemodynamically stable, afebrile, adequate urine output Review of Systems Review of Systems: All systems reviewed & are unremarkable except as noted in HPI and below Exam Narrative: General: Pleasant patient in no acute distress HEENT:? Pupils equal reactive, sclera is clear, moist oral mucosa Neck:? Neck is supple Respiratory:? Here to auscultation bilaterally Cardiac:? S1-S2 normal, regular rate and rhythm Abdomen:? Soft, nontender, nondistended with normoactive bowel sounds Extremities:? No edema, palpable pedal pulses, right radial catheterization site without any evidence of ecchymosis or hematoma, palpable right radial pulse Neuro:? Patient is awake, alert, oriented, nonfocal, able to answer the questions raúl
--- NOTE | 2023-01-11 14:01 | PM.PNCARD ---
Progress Note: A&P Assessment and Plan (1) ST elevation (STEMI) myocardial infarction: Code(s): I21.3 - ST elevation (STEMI) myocardial infarction of unspecified site Status: Acute Plan This is a 52-year-old man with coronary and peripheral vascular disease doing well postop day 1. Following emergency PCI to RCA in the setting of acute ST-elevation DE. he can move out of ICU today. Patient potentially is a discharge candidate tomorrow or over the weekend. Stressed compliance with dual anti-platelet therapy with the patient and his . Rodrigo Soliz MD [facility] Subjective Date/time seen: Date of service: 01/11/23 14:01 Interval history: Follow-up visit in this 52-year-old man with: Coronary artery disease and peripheral arterial disease admitted here following acute inferior ST-elevation [place]. patient underwent emergency PCI(RADHA) to a significantly calcified RCA lesion yesterday with a good anatomic result. Patient is feeling much better today no significant complaints at this time and had a long discussion with the patient and his about the details of yesterday's procedure and the importance of strict compliance to DA PT Exam Const: General: comfortable and no acute distress HENMT: Mouth: Yes moist mucous membranes Eyes: Sclera: sclerae normal Neck: Neck: supple and no JVD Resp: Effort & Inspection: normal respiratory effort Auscultation: clear to auscultation bilaterally Cardio: Rate: regular rate Rhythm: regular rhythm GI: GI Palp: Yes Soft to palpation Auscultation: normal bowel sounds Skin: General skin exam: normal color Neuro: Other: Alert and oriented x3 Extrem: Other: No edema, good distal pulses Objective Data Vital Signs Vital Signs: Vital Signs - 24 hr 01/10/23 14:30 01/10/23 14:55 01/10/23 14:45 Temperature 36.6 C Pulse Rate 73 76 Pulse Rate [Right Radial Palpation] Respiratory Rate 19 19 Blood Pressure 125/78 129/80 Pulse Oximetry 95 97 Oxygen Delivery Room Air 01/10/23 15:15 01/10/23 15:00 01/10/23 15:30 Temperature Pulse Rate 70 69 69 Pulse Rate [Right Radial Palpation] Respiratory Rate 18 18 18 Blood Pressure 119/75 107/87 107/87 Pulse Oximetry 96 96 96 Oxygen Delivery 01/10/23 16:00 01/10/23 16:00 01/10/23 16:00 Temperature Pulse Rate 78 78 Pulse Rate [Right Radial Palpation] Respiratory Rate 18 18 Blood Pressure 117/72 117/72 Pulse Oximetry 95 95 Oxygen Delivery Room Air 01/10/23 16:30 01/10/23 17:00 01/10/23 16:00 Temperature Pulse Rate 73 72 74 Pulse Rate [Right Radial Palpation] Respiratory Rate 16 18 Blood Pressure 127/75 118/80 Pulse Oximetry 96 95 Oxygen Delivery 01/10/23 17:00 01/10/23 17:15 01/10/23 17:30 Temperature Pulse Rate 72 68 74 Pulse Rate [Right Radial Palpation] Respiratory Rate 18 18 16 Blood Pressure 118/80 123/79 118/80 Pulse Oximetry 95 96 96 Oxygen Delivery 01/10/23 17:45 01/10/23 18:00 01/10/23 18:00 Temperature Pulse Rate 73 72 72 Pulse Rate [Right Radial Palpation] Respiratory Rate 18 18 Blood Pressure 126/77 127/78 Pulse Oximetry 97 96 Oxygen Delivery 01/10/23 18:30 01/10/23 18:30 01/10/23 19:00 Temperature Pulse Rate 71 71 83 Pulse Rate [Right Radial Palpation] Respiratory Rate 16 18 Blood Pressure 124/76 118/77 Pulse Oximetry 96 96 Oxygen Delivery 01/10/23 20:00 01/10/23 21:00 01/10/23 20:00 Temperature 36.6 C 36.6 C Pulse Rate 74 69 Pulse Rate [Right Radial Palpation] Respiratory Rate 18 14 Blood Pressure 118/74 121/71 Pulse Oximetry 97 95 Oxygen Delivery Room Air 01/10/23 20:00 01/10/23 20:00 01/10/23 22:00 Temperature 36.6 C Pulse Rate 80 77 Pulse Rate [Right Radial Palpation] Respiratory Rate 18 Blood Pressure 102/68 Pulse Oximetry 94 94 Oxygen Delivery 01/10/23 22:00 01/10/23 23:00 01/10/23 23:52 Temperature 36.6 C 36.8 C Pulse R
[2023-01-11 16:27] LABS: Glucose Point of Care 112 mg/dl (65-105)
[2023-01-11] MEDS: PRAMIPEXOLE 0.5 MG TABLET PO (20:16)
[2023-01-11 20:24] LABS: Glucose Point of Care 170 mg/dl (65-105)
--- NOTE | 2023-01-11 22:51 | PC.NURSE ---
This patient, Leodan Carranza ., was received from ICU-10 to room 209-01 on 01/11/23 at 2245. Report received from TATE Guadarrama. Patient/family oriented to unit policies and routines
--- NOTE | 2023-01-11 23:04 | PC.NURSE ---
This patient, Leodan Carranza ., was transferred to [facility] on 01/11/23 at 2251. Personal belongings sent with patient. Report given to Meghann Tom RN. Appropriate documentation sent with patient.
[2023-01-12] VITALS (14 sets, daily range): BP systolic 96–135; BP diastolic 56–83; PULSE 69–120; RESP 16–24; TEMP 36.2–36.8; O2SAT 95–100
[2023-01-12] MEDS: ASPIRIN 81 MG ENTERIC TABLET PO (08:51)
[2023-01-12] MEDS: TICAGRELOR 90 MG TABLET PO ×2 (08:51→20:39)
[2023-01-12] MEDS: PANTOPRAZOLE SODIUM IV 40 MG VIAL IV PUSH (08:51)
[2023-01-12] MEDS: ATORVASTATIN 40 MG TABLET 80 MG PO (08:51)
--- NOTE | 2023-01-12 09:46 | PM.PNCARD ---
Progress Note: A&P Assessment and Plan (1) ST elevation (STEMI) myocardial infarction: Code(s): I21.3 - ST elevation (STEMI) myocardial infarction of unspecified site Status: Acute Assessment and Plan: Continue dual antiplatelet therapy with aspirin and Brilinta, atorvastatin. I am going to add metoprolol succinate 25 mg p.o. daily as well as lisinopril 5 mg daily. (2) Hyperlipidemia associated with type 2 diabetes mellitus: Code(s): E11.69 - Type 2 diabetes mellitus with other specified complication; E78.5 - Hyperlipidemia, unspecified Status: Acute Assessment and Plan: On high-dose statin (3) PAD (peripheral artery disease): Code(s): I73.9 - Peripheral vascular disease, unspecified Status: Acute Assessment and Plan: Anti-platelet medication (4) Tobacco use disorder: Code(s): F17.200 - Nicotine dependence, unspecified, uncomplicated Status: Acute Assessment and Plan: Tobacco abuse can some performed (5) Ischemic cardiomyopathy: Code(s): I25.5 - Ischemic cardiomyopathy Status: Acute Assessment and Plan: Mild. Continue current regimen but will add metoprolol and lisinopril as detailed above. Keep in hospital for another 24 hours to evaluate tolerance of medications Subjective Date/time seen: 01/12/23 09:46 Interval history: Follow-up visit in this 52-year-old man with: Coronary artery disease and peripheral arterial disease admitted here following acute inferior ST-elevation MD. patient underwent emergency PCI(RADHA) to a significantly calcified RCA lesion yesterday with a good anatomic result. Date of service 01/12/2023: Feels good. Anxious to go home. No chest pain or shortness of breath. Review of Systems Review of Systems: All systems reviewed & are unremarkable except as noted in HPI and below Constitutional: Constitutional: Denies body ache(s) Eyes: Eyes: Denies blurry vision ENT: Reports Normal hearing present and Denies tongue swelling Cardiovascular: Cardiovascular: Reports chest pain and Reports diaphoresis Respiratory: Respiratory: Denies chest congestion Gastrointestinal: Gastrointestinal: Denies abdominal pain Genitourinary: Genitourinary: Denies hematuria Musculoskeletal: Musculoskeletal: Denies back pain Integumentary/Breasts: Skin/Breast: Denies dry skin Neurologic: Reports Normal hearing present and Denies Abnormal speech present Psychiatric: Psychiatric: Reports anxiety Endocrine: Endocrine: Denies flushing Hematologic/Lymphatic: Hematologic/Lymphatic: Denies easy bleeding Allergic/Immunologic: Allergic/Immunologic: Denies GI upset with certain foods and Denies tongue swelling Exam Narrative: Awake alert. Appears stated age. Appears anxious and in distress Const: General: comfortable, no acute distress, in distress and uncomfortable HENMT: Face/Nose/Sinus: Normal nares present Mouth: Yes moist mucous membranes Eyes: General: appearance normal, both eyes and all related structures Sclera: sclerae normal Neck: Neck: supple and no JVD Carotids: no bruits Chest: Other: No reproducible chest wall pain to palpation Resp: Effort & Inspection: normal respiratory effort Auscultation: clear to auscultation bilaterally Cardio: Rate: regular rate Rhythm: regular rhythm Heart sounds: no murmurs GI: Inspection: non-distended Auscultation: normal bowel sounds Skin: General skin exam: normal color Neuro: Cranial nerves: Yes Normal hearing present Speech: normal speech and No Abnormal speech present Sensory Exam: normal sensation Other: Alert and oriented x3 Extrem: General: normal to inspection Other: No edema, good distal pulses Psych: Mental Status: mental status grossly normal Affect: normal affect Objective Data Vital Signs Vital Signs: Vital Signs - 24 hr 01/11/23 09:49 01/11/23 10:00 01/11/23 11:21 Temperature 37.3 C Pu
[2023-01-12 10:41] LABS: Glucose Point of Care 229 mg/dl (65-105)
[2023-01-12] MEDS: lisinopriL 5 MG TABLET PO (12:22)
[2023-01-12] MEDS: METOPROLOL SUCCINATE EXT REL 25 MG TABCR PO (12:22)
[2023-01-12 13:14] LABS: Glucose Point of Care 166 mg/dl (65-105)
[2023-01-12 17:15] LABS: Glucose Point of Care 204 mg/dl (65-105)
[2023-01-12] MEDS: INSULIN ASPART (*BKC) 100 UNITS/ML SUB-Q (17:53)
[2023-01-12] MEDS: PRAMIPEXOLE 0.5 MG TABLET PO (20:39)
[2023-01-12 20:43] LABS: Glucose Point of Care 200 mg/dl (65-105)
[2023-01-13] VITALS (8 sets, daily range): BP systolic 108–117; BP diastolic 68–72; PULSE 63–72; RESP 20; TEMP 36.6; O2SAT 99–100
[2023-01-13 04:19] LABS: Hemoglobin 15.1 g/dL (14.0-18.0); Mean Corpuscular HGB Conc 34.3 g/dl (32-36); Mean Corpuscular Hemoglobin 33.1 pg (26-34); Mean Corpuscular Volume 96.5 fl (80-100); Mean Platelet Volume 9.8 fl (7.4-10.4); Platelet Count Result 246 k/mm3 (150-375); Red Blood Count 4.56 M/mm3 (4.6-6.20); Red Cell Distribution Width 13.1 % (11.5-14.5); White Blood Count 7.7 K/mm3 (4.5-10.0)
[2023-01-13 04:30] LABS: Anion Gap 8 mmol/L (8-16); Blood Urea Nitrogen 16 mg/dL (9-20); Carbon Dioxide 26 mmol/L (22-30); Chloride 104 mmol/L (98-107); Estimated CRCL calculation 101 ml/min; Estimated Glomerular Filt Rate > 60; Glucose 153 mg/dL (65-110); Potassium 3.9 mmol/L (3.4-5.0); Sodium 138 mmol/L (137-145)
[2023-01-13 07:48] LABS: Glucose Point of Care 139 mg/dl (65-105)
[2023-01-13] MEDS: ASPIRIN 81 MG ENTERIC TABLET PO (09:26)
[2023-01-13] MEDS: TICAGRELOR 90 MG TABLET PO (09:26)
[2023-01-13] MEDS: ATORVASTATIN 40 MG TABLET 80 MG PO (09:26)
[2023-01-13] MEDS: METOPROLOL SUCCINATE EXT REL 25 MG TABCR PO (09:26)
[2023-01-13] MEDS: lisinopriL 5 MG TABLET PO (09:27)
[2023-01-13] MEDS: PANTOPRAZOLE SODIUM IV 40 MG VIAL IV PUSH (09:30)
--- NOTE | 2023-01-13 10:30 | PM.DS ---
DS: Admitting Diagnosis Discharge Date 01/13/[address]-elevation myocardial infarction DS: Discharge Diagnosis Discharge Diagnosis (1) Ischemic cardiomyopathy: Code(s): I25.5 - Ischemic cardiomyopathy Status: Acute Assessment and Plan: Mild reduction in ejection fraction. Tolerating metoprolol and lisinopril (2) Hyperlipidemia associated with type 2 diabetes mellitus: Code(s): E11.69 - Type 2 diabetes mellitus with other specified complication; E78.5 - Hyperlipidemia, unspecified Status: Acute Assessment and Plan: On high-dose statin. Diabetes control per PCP and endo (3) ST elevation (STEMI) myocardial infarction: Code(s): I21.3 - ST elevation (STEMI) myocardial infarction of unspecified site Status: Acute Assessment and Plan: Status post RADHA to the RCA. Continue dual anti-platelet therapy, statin, metoprolol, lisinopril and p.r.n. nitroglycerin (4) PAD (peripheral artery disease): Code(s): I73.9 - Peripheral vascular disease, unspecified Status: Acute Assessment and Plan: As detailed above (5) Hypertriglyceridemia: Code(s): E78.1 - Pure hyperglyceridemia Status: Acute (6) Tobacco use disorder: Code(s): F17.200 - Nicotine dependence, unspecified, uncomplicated Status: Acute Assessment and Plan: Tobacco abuse counseling performed DS: Summary Hospital Course Reason for hospitalization: Chest pain ST-elevation myocardial infarction Hospital Course: 52-year-old who came to hospital with severe chest pain. EKG showed inferior posterior ST elevations. He was emergently catheterization by Dr. Silva. He had subtotal occlusion of an RCA. Status post drug-eluting stent. This was performed without complication. Echocardiogram showed mildly reduced EF. He did well postprocedure early. He had no residual chest pain. Metoprolol and lisinopril were initiated and an extra day in hospital to evaluate for tolerance. He had no complications with the new medications or with the procedure. He was discharged home in good condition Status at Discharge Cognitive/behavioral status at discharge: Good Discharge diet: Heart healthy Discharged home Time Spent with Patient Time attestation: Total time spent providing and/or coordinating discharge services: Exam Narrative: Awake alert. Appears stated age. Appears anxious and in distress Const: General: comfortable, no acute distress, in distress and uncomfortable HENMT: Face/Nose/Sinus: Normal nares present Mouth: Yes moist mucous membranes Eyes: General: appearance normal, both eyes and all related structures Sclera: sclerae normal Neck: Neck: supple and no JVD Carotids: no bruits Chest: Other: No reproducible chest wall pain to palpation Resp: Effort & Inspection: normal respiratory effort Auscultation: clear to auscultation bilaterally Cardio: Rate: regular rate Rhythm: regular rhythm Heart sounds: no murmurs GI: Inspection: non-distended Auscultation: normal bowel sounds Skin: General skin exam: normal color Neuro: Cranial nerves: Yes Normal hearing present Speech: normal speech and No Abnormal speech present Sensory Exam: normal sensation Other: Alert and oriented x3 Extrem: General: normal to inspection Other: No edema, good distal pulses Psych: Mental Status: mental status grossly normal Affect: normal affect DS: Data Data Completed and Pending Completed studies during hospitalization: Calcific 99% stenosis of the mid RCA s/p PCI with placement of RADHA x 1 Mild non-obstructive disease of the mid LAD Procedure(s): 1. Moderate sedation 2. Ultrasound-guided access of the right radial artery 3. Coronary angiography 4. PCI of the mid RCA with RADHA x 1 Echo ? 1. Left ventricular chamber dimension is normal. ? 2. Left ventricular systolic function is moderately reduced, estimated at 40-45%. ?
== END 2023-01-13 11:45 | disposition home or self-care (01) | DRG 247 ==
LOC: ANHED 10:48 → ANHICU 10:59 → ANHIMU 01-11 22:52
PROVIDERS: Internal Medicine; Admitting Provider Internal Medicine; Emergency Provider Emergency Medicine; PCP Family Medicine; Visit Provider Internal Medicine Cardiovascular Disease
PROC: (CPT 93454; principal; 2023-01-10 11:00)
DX: I21.11 ST elevation (STEMI) myocardial infarction involving right coronary artery (principal); I25.5 Ischemic cardiomyopathy; E11.69 Type 2 diabetes mellitus with other specified complication; E78.5 Hyperlipidemia, unspecified; I73.9 Peripheral vascular disease, unspecified; E78.1 Pure hyperglyceridemia; K52.3 Indeterminate colitis; Z79.82 Long term (current) use of aspirin; Z87.891 Personal history of nicotine dependence
CPT/HCPCS: 36415; 80048; 80053; 80061; 82948; 83036; 83690; 83735; 84100; 84484; 85025; 85027; 85610; 85730; 92978; 93005; 93454; 99285; A9270; C1725; C1753; C1769; C1874; C1887; C1894; C8929; C9113; C9606; J0583; J1644; J1815; J2250; J2405; J3010; J7030; J7040; Q9957

== ENCOUNTER 2023-03-05 14:20 | Outpatient (CLI) | payer OTHER, SELFPAY ==
--- NOTE | ~2023-03-05 | US_ITS ---
EXAMINATION: US carotid duplex BI DATE: 03/05/2023 15:56 INDICATION: Numbness and tingling to the head and bilateral fifth fingers TECHNIQUE: Grayscale, color Doppler, and pulsed Doppler images of the cervical carotid arteries were obtained. The degree of vessel stenosis is placed in one of the following categories: normal, <50%, 5 0-69%, >=70% but less than near-occlusion, near-occlusion, or total occlusion. Note that percent sten osis relative to normal distal artery lumen diameter is indirectly measured from velocity measurement s as described by Ariel, et al. Radiology 2003; 229:340-346. COMPARISON: None. FINDINGS: RIGHT: The right common carotid artery (CCA) peak systolic velocity (PSV) is 99 cm/s. The right internal car otid artery (ICA) PSV is 65 cm/s. The right ICA end-diastolic velocity (EDV) is 29 cm/s. The right IC A/CCA PSV ratio is 0.7. Grayscale and color Doppler images yield an estimate of <50% diameter reducti on from plaque in the ICA. The external carotid artery (ECA) PSV is 96 cm/s. There is antegrade flow in the right vertebral artery. LEFT: The left CCA PSV is 120 cm/s. The left ICA PSV is 72 cm/s. The left ICA EDV is 29 cm/s. The left ICA/ CCA PSV ratio is 0.6. Grayscale and color Doppler images yield an estimate of <50% diameter reduction from plaque in the ICA. The ECA PSV is 105 cm/s. There is antegrade flow in the left vertebral arter y. IMPRESSION: 1. <50% stenosis in the right internal carotid artery. 2. <50% stenosis in the left internal carotid artery. Reviewed, dictated and finalized at location A.
== END 2023-03-05 14:21 | disposition home or self-care (01) ==
PROVIDERS: PCP Family Medicine; Visit Provider Nurse Practitioner Family
DX: I73.9 Peripheral vascular disease, unspecified (principal); R20.0 Anesthesia of skin; R20.2 Paresthesia of skin; R51.9 Headache, unspecified; I65.23 Occlusion and stenosis of bilateral carotid arteries
CPT/HCPCS: 93880

== ENCOUNTER 2023-04-02 08:52 | Outpatient (CLI) | payer OTHER, SELFPAY ==
--- NOTE | 2023-04-02 09:19 | ECHO_ITS ---
Patient Info Name: Leodan Carranza Age: 53 years : 1970 Gender: Male Ht: 71 in Wt: 183 lbs BSA: 2.05 m2 HR: 65 bpm BP: 120 / 85 mmHg Heart Rhythm: Sinus Rhythm Technical Quality: Good Exam Date: 04/02/2023 9:32 AM Exam Location: [facility] Patient Status: Outpatient Admit Date: 04/02/2023 Staff Ordering Physician: Fran Quiroz NP Educational Adviser: Robby Bautista RDCS Attending Provider: Fran Quiroz NP Referring Physician: Richie ALANIS; Exam Type: CA echo doppler color flow Study Info Indications - ST elevation of CA Complete two-dimensional, color flow and Doppler transthoracic echocardiogram is performed. Summary 1. Complete two-dimensional, color flow and Doppler transthoracic echocardiogram is performed. 2. Normal left ventricular size and global systolic function. 3. Hypokinesis of the inferior wall and inferoseptal segments. 4. Normal right ventricle. 5. Mildly sclerotic but nonstenotic aortic valve. Left Ventricle Left ventricular chamber dimension is normal. Left ventricular systolic function is normal, estimated at 55-60%. The left ventricular diastolic function is grade I diastolic dysfunction. Right Ventricle Right ventricular chamber dimension is normal. Left Atria Left atrial chamber dimension is normal. Right Atria Right atrial chamber dimension is normal. Aortic Valve The aortic valve is trileaflet. There is mild aortic valve sclerosis. Pulmonic Valve The pulmonic valve is normal. Mitral Valve The mitral valve has normal leaflets. Tricuspid Valve The tricuspid valve leaflets are normal. Pericardium/Pleural The pericardium appears normal. Aorta The aortic root size at the sinus of Valsalva is normal. Left Ventricular Outflow Tract Name Value Normal LVOT 2D LVOT Diameter 2.1 cm LVOT Doppler LVOT Peak Gradient 3 mmHg LVOT Mean Gradient 1 mmHg LVOT VTI 18 cm LVOT VTI/AV VTI Ratio 0.9 LVOT Stroke Volume 62 ml LVOT CO 3.6 l/min LVOT CI 1.8 l/min/m2 Pulmonic Valve Name Value Normal RVOT Doppler RVOT Peak Gradient 1 mmHg PV Doppler PV Peak Gradient 2 mmHg Mitral Valve Name Value Normal MV Doppler MV Decel [place] 177 cm/s2 MV PHT 74 ms MV Area (PHT) 3.0 cm2 4.0-5.0 MV Diastolic Function
== END 2023-04-02 08:53 | disposition home or self-care (01) ==
LOC: ANHCARD 08:54
PROVIDERS: PCP Family Medicine; Visit Provider Nurse Practitioner Family
DX: I21.3 ST elevation (STEMI) myocardial infarction of unspecified site (principal)
CPT/HCPCS: 93306

== ENCOUNTER 2023-06-06 07:15 | Outpatient (RCR) | payer OTHER, SELFPAY | END 2023-06-06 08:18 | disposition home or self-care (01) | LOC: ANHCPREHAB 07:15 | PROVIDERS: PCP Family Medicine; Visit Provider Internal Medicine Cardiovascular Disease | DX: Z95.5 Presence of coronary angioplasty implant and graft (principal) | CPT/HCPCS: 93798 ==

== ENCOUNTER 2023-11-04 08:26 | Outpatient (CLI) | payer OTHER, SELFPAY ==
--- NOTE | ~2023-11-04 | US_ITS ---
EXAMINATION: US art doppler w press LE BI DATE: 11/04/2023 09:36 INDICATION: Left lower limb claudication. TECHNIQUE: Segmental pressures and plethysmographic and Doppler waveforms of the brachial and lower e xtremity arteries were obtained. COMPARISON: 12/04/2021 FINDINGS: Right and left brachial artery pressures of 120 mm Hg and 105 mm Hg, respectively, are concordant (no rmal difference <= 30 mmHg). The right ankle-brachial index (ABBY) is 1.08 (normal >= 0.9-1). The right great toe-brachial index (T BI) is 0.42 (normal >= 0.6-0.8). The left ABBY is 1.11. The left TBI is 0.08. . IMPRESSION: 1. Arterial occlusive disease to the bilateral lower limbs with normal bilateral ABIs but interval pr ogression of now mildly decreased right and severely decreased left TBI's Reviewed, dictated and finalized at location B. IMPRESSION: 1. Arterial occlusive disease to the bilateral lower limbs with normal bilatera l ABIs but interval progression of now mildly decreased right and severely decr eased left TBI's
== END 2023-11-04 08:27 | disposition home or self-care (01) ==
PROVIDERS: PCP Family Medicine; Visit Provider Internal Medicine Cardiovascular Disease
DX: I73.9 Peripheral vascular disease, unspecified (principal)
CPT/HCPCS: 93923

== ENCOUNTER 2025-06-17 08:42 | Outpatient (CLI) | payer OTHER, SELFPAY ==
--- NOTE | ~2025-06-17 | US_ITS ---
EXAMINATION: US art doppler w press LE BI DATE: 06/17/2025 09:37 INDICATION: Peripheral arterial occlusive disease with claudication and ulceration at the tip of the left to TECHNIQUE: Segmental pressures and plethysmographic and Doppler waveforms of the brachial and lower extremity arteries were obtained. COMPARISON: None. FINDINGS: Right and left brachial artery pressures of 126 mm Hg and 124 mm Hg, respectively, are concordant (normal difference <= 30 mmHg). The right ankle-brachial index (ABBY) is 0.96 (normal >= 0.9-1). The right great toe-brachial index (TBI) is 0.47 (normal >= 0.6-0.8). The right lower extremity segmental pressure gradients are normal (normal gradients <= 20-30 mmHg between adjacent levels on the same leg or the same levels on the two legs). Arterial waveforms demonstrate normal brisk systolic upstrokes throughout the arteries of the right lower limb. The left ABBY is 1.83. The left TBI is 0.19. The left lower extremity segmental pressure gradients are normal. Arterial waveforms demonstrate normal brisk systolic upstrokes throughout the arteries of the left lower limb. IMPRESSION: 1. Arterial occlusive disease to the bilateral lower limbs with borderline right ABBY and mildly decreased right TBI and more prominent mildly decreased left ABBY and severely decreased left TBI. Reviewed, dictated and finalized at location A. IMPRESSION: 1. Arterial occlusive disease to the bilateral lower limbs with borderline righ t ABBY and mildly decreased right TBI and more prominent mildly decreased left A BI and severely decreased left TBI.
--- OUTSIDE RECORDS SUMMARY | 2025-06-17 08:57 | XMS_ITS | Clinical Summary ---
Author Organization [facility] [employer] Address [address] [place] [address] Care Team Providers Care Station Superintendent Name Role Phone Dominic Verdugo MD Primary Care Provider [phone] Source Comments [facility] [employer],non-owned Affiliates and Associated Physician Practices is amultiple site organization consisting of ambulatory clinics and hospital sitesin [place], [place], [place] and [place]. This disclosure is being madepursuant to the Care Everywhere program and may not contain all information available regarding this patient. Last updated 18.[facility] [employer] Medications * Be aware that medications may not be up to date on this document. Alwaysverify current medications with the patient. vitamin D, cholecalciferol, 2000 UNITS tablet Take 2,000 Units by mouth q48h. 10/30/2016 Active atorvastatin (LIPITOR) 20 MG tablet Take by mouth. 12/19/2015 Active ibuprofen (MOTRIN) 800 MG tablet Take by mouth q6h PRN. 01/14/2015 Active pramipexole (MIRAPEX) 0.25 MG tablet Take by mouth. 01/19/2016 Active Active Problems Problem Noted Date Diagnosed Date Fatty (change of) liver, not elsewhere classifie d 11/22/2016 Overview (11/25/2017): Liver biopsy 11/20/16: LIVER, BIOPSY: - STEATOHEPATITIS, NAFLD ACTIVITY SCORE 4/8 (SEE COMMENT) - FIBROSIS: STAGE 1 Type 2 diabetes mellitus without complications 0 11/08/2016 Overview (05/26/2025): type 2 boarderline IMO 11/25/2024 IMO 05/26/2025 Obstructive sleep apnea 11/08/2016 Overview (11/25/2017): CPAP Hyperlipidemia 11/08/2016 Restless legs syndrome 11/08/2016 Social History Tobacco Use Types Packs/Day Years Used Date Smoking Tobacco: Every Day Cigarettes Smokeless Tobacco: Never Alcohol Use Standard Drinks/Week Comments No 0 (1 standard drink = 0.6 oz pur e alcohol) Sex and Gender Information Value Date Recorded Sex Assigned at Not on file Legal Sex Male 5:40 PM COW PUN[employer] Gender Identity Not on file Sexual Orientation Not on file Last Filed Vital Signs Vital Sign Reading Time Taken Comments Blood Pressure 147/88 12/04/2016 9:07 AM CDT Pulse 85 12/04/2016 9:07 AM CDT Temperature 36.3 C (97.3 F) 12/04/2016 9:07 AM CDT Respiratory Rate 18 12/04/2016 9:07 AM CDT Oxygen Saturation 100% 12/04/2016 9:07 AM CDT Inhaled Oxygen Concentration - - Weight 96 kg (211 lb 9.6 oz) 12/04/2016 9:07 AM CDT Height 180.3 cm (5' 11) 12/04/2016 9:07 AM CDT Body Mass Index 29.51 12/04/2016 9:07 AM CDT Plan of Treatment Health Maintenance Due Date Last Done Comments COLOGUARD (AGES 45-75) - COL ON CA SCREENING 1970 COLON MONITORING 1971 COLONOSCOPY - COLON CA SCREENING 1971 CT COLONOGRAPHY - COLON CA SCREENING 1970 Colorectal Cancer Screening 1971 FIT - COLON CA SCREENING 1971 FLEX SIG - COLON CA SCREENING 1971 HIV SCREENING 1986 HEPATITIS C SCREENING 02/16/1989 DTAP/TDAP/TD VACCINES (1 - Tdap) 1990 HEPATITIS B VACCINE (1 of 3 - 19+ 3-dose series) 1990 PNEUMOCOCCAL VACCINE 50+ (1 of 2 - PCV) 1990 ZOSTER VACCINE (1 of 2) 2021 DEPRESSION SCREENING 08/26/2024 COVID-19 VACCINE (1 - 2023-2 5 season) 2025 INFLUENZA VACCINE (#1) 2025 HIB VACCINE Aged Out No longer eligi ble based on patient's age to complete this topic HPV VACCINE Aged Out No longer eligi ble based on patient's age to complete this topic MENINGOCOCCAL (Group B) VACC INE SHARED DECISION-MAKING Aged Out No longer eligibl e based on patient's age to complete this topic MENINGOCOCCAL GROUPS A/C/Y/W VACCINE Aged Out No longer eligible b ased on patient's age to complete this topic Insurance [facility] Care Teams Station Superintendent Relationship Specialty Start Date End Date Dominic Verdugo MD [address] [place] [address] PCP - General 05/23/16
--- OUTSIDE RECORDS SUMMARY | 2025-06-17 08:57 | XMS_ITS | Clinical Summary ---
Author Organization [facility] [address] [place] [id number] Care Team Providers Care Education Finance Processor Name Role Phone Dominic Verdugo MD Primary Care Provider [phone] Allergies Active Allergy Reactions Criticality Noted Date Comments Metformin Stomach upset High 05/24/2022 Dulaglutide Other (See comments) Medium 05/24/2022 constipation Medications aspirin 81 mg enteric coated tablet Take 1 tablet (81 mg total) by mouth daily 11/28/19 20 Active montelukast (SINGULAIR) 10 mg tablet Take 1 tablet (10 mg total) by mouth daily 10/05/19 21 Active pramipexole (MIRAPEX) 0.5 mg tablet Take 1 tablet (0.5 mg total) by mouth nightly 10/05/19 21 Active FreeStyle Lite Strips stripIndications :Type 2 diabetes mellitus with hyperglycemia, without long-term current use of insulin ([facility]) Check blood sugar daily 100 strip 3 01/28/20 24 Active Jardiance 25 mg tabletIndication s:Type 2 diabetes mellitus with hyperglycemia, without long-term current use of insulin ([facility]) TAKE 1 TABLET DAILY 90 tablet 3 08/05/20 24 Active Ozempic 0.25 mg or 0.5 mg (2 mg/3 mL) pen injector injectionIndicat ions:Type 2 diabetes mellitus with hyperglycemia, without long-term current use of insulin ([facility]) INJECT 0.5 MG UNDER THE SKIN EVERY 7 DAYS 9 mL 3 12/01/19 25 Active lisinopriL (PRINIVIL,ZESTRI L) 5 mg tablet TAKE 1 TABLET EVERY MORNING 90 tablet 3 12/01/19 25 Active tamsulosin (FLOMAX) 0.4 mg extended release capsule TAKE 1 CAPSULE BY MOUTH EVERY DAY AT BEDTIME 12/29/[address] (PROTONIX) 40 mg EC tabletIndication s:Gastroesophage al reflux disease, unspecified whether esophagitis present TAKE 1 TABLET DAILY 90 tablet 1 03/15/20 25 Active rivaroxaban (Xarelto) 2.5 mg tablet TAKE 1 TABLET TWICE A DAY 60 tablet 9 06/03/20 25 Active amLODIPine (NORVASC) 10 mg tablet Take 1 tablet (10 mg total) by mouth daily 30 tablet 11 06/04/20 25 Active cilostazoL (PLETAL) 50 mg tabletIndication s:Intermittent Claudication Take 1 tablet (50 mg total) by mouth 2 (two) times a day 60 tablet 11 06/04/20 25 026 Active atorvastatin (LIPITOR) 80 mg tabletIndication s:Coronary artery disease involving the [place] coronary artery of the [place] heart without angina pectoris Take 1 tablet (80 mg total) by mouth daily 90 tablet 6 06/04/20 25 Active rivaroxaban (XARELTO) 2.5 mg tablet Take 1 tablet (2.5 mg total) by mouth 2 (two) times a day 60 tablet 11 04/15/20 24 025 Discontinued atorvastatin (LIPITOR) 40 mg tabletIndication s:Coronary artery disease involving the [place] coronary artery of [place] heart without angina pectoris TAKE 1 TABLET TWICE A DAY 180 tablet 3 11/20/19 25 025 Discontinued amLODIPine (NORVASC) 5 mg tablet TAKE 1 TABLET DAILY 90 tablet 3 11/27/19 25 025 Discontinued Active Problems Problem Noted Date Diagnosed Date ESPARZA (dyspnea on exertion) 10/20/2024 Hypertension associated with type 2 diabetes hyacinth litus 07/29/2024 Assessment & Plan (01/28/2025 9:12 AM CDT): Chronic problem. Controlled on current amlodipine 5mg daily, lisinopril 5mg daily. Assessment & Plan (07/30/2024 9:25 AM STAGE TECHNICIAN): Chronic problem. Controlled on current amlodipine 5mg daily, lisinopril 5mg daily. PAD (peripheral artery disease) 12/18/2023 Left leg claudication 10/25/2023 Palpitations 03/26/2023 Coronary artery disease invo lving the [place] coronary artery of [place] heart without angina pectoris 03/26/2023 Gastroesophageal reflux disease 03/26/2023 Ischemic cardiomyopathy 03/26/2023 Hyperlipidemia associated with type 2 diabetes m melissa 01/18/2022 Assessment & Plan (01/28/2025 9:12 AM CDT): Chronic problem. Controlled on current Atorvastatin 40mg bid. Last lipid panel: 09/10/24 LDL=63, JR=914. Assessment & Plan (07/30/2024 9:25 AM STAGE TECHNICIAN): Chronic problem. Controlled on current Atorvastatin 40mg bid. Last lipid panel: 02/11/24 LDL=50, OM=588. Assessment & Plan (02/13/2024 10:18 AM CDT): Chronic, well controlled Continue Atorvastatin Assessment & Plan (10/10/2023 9:11 AM STAGE TECHNICIAN): Chronic problem. Controlled on current Atorvastatin 40mg bid. Last lipid panel: 02/19/23 LDL=65, RT=204. Assessment & Plan (05/23/2023 10:14 AM CDT): Chronic problem. Controlled on current Atorvastatin 40mg bid. Last lipid panel: 02/19/23 LDL=65, VN=431. Assessment & Plan (01/22/2023 4:21 PM CDT): LDL goal under 70 Update Lipid profile Adjust dose of atorvastatin / consider switch to rosuvastatin , if indicated for LDL goal Assessment & Plan (09/27/2022 5:24 PM STAGE TECHNICIAN): Chronic, stable Continue atorvastatin Assessment & Plan (05/24/2022 12:42 PM CDT): Chronic, with hypertriglyceridemia Low fat Low cholesterol diet Exercise Continue statin therapy Will check fasting lipid profile Assessment & Plan (01/18/2022 2:36 PM CDT): On Atorvastastin Check fasting lipid profile Start Vascepa, as indicated, for hypertriglyceridemia. Type 2 diabetes mellitus wit h hyperglycemia, without long-term current use of insulin 12/27/2020 Assessment & Plan (01/28/2025 9:39 AM CDT): Chronic problem. A1c at goal 6.5%. no changes at this time. Current medications: Jardiance 25mg daily Ozempic 0.5mg weekly UTD on labs. UTD DM eye exam (01/08/24 no DMR/DME Dr Romero. ) Strive for regular exercise (30min most days) and diet (get at least 4-5 servings of fruit and veggies daily, avoid processed foods, increase lean protein intake and decrease carb portions as well as fruit juices, regular soda & desserts). Watch carbs and simple sugars. Check the blood sugar 2-3x/wk. Check the feet daily for skin breakdown and infection. Assessment & Plan (07/30/2024 10:12 AM STAGE TECHNICIAN): Chronic problem. A1c at goal 6.3% 02/13/24 and today 6.4%. Current medications: Jardiance 25mg daily Ozempic 0.5mg weekly Will update MA/Cr today. Verified that he uses mychart. Aware to check results/results letter in [facility]. Will contact by phone if needed. UTD DM eye exam (01/08/24 no DMR/DME Dr Romero. ) Strive for regular exercise (30min most days) and diet (get at least 4-5 servings of fruit and veggies daily, avoid processed foods, increase lean protein intake and decrease carb portions as well as fruit juices, regular soda & desserts). Watch carbs and simple sugars. Check the blood sugar daily. Check the feet daily for skin breakdown and infection. Assessment & Plan (02/13/2024 10:16 AM CDT): Chronic, well controlled Importance of diet and exercise were discussed Conamandanramiro Moffett and Ozempic Assessment & Plan (10/10/2023 9:11 AM STAGE TECHNICIAN): Chronic problem. A1c at goal (6.7%); down from 6.0%. but no further hypoglycemia Current medications: Jardiance 25mg daily Ozempic 0.5mg weekly UTD on labs. UTD DM eye exam (11/2022) Strive for regular exercise (30min most days) and diet (get at least 4-5 servings of fruit and veggies daily, avoid processed foods, increase lean protein intake and decrease carb portions as well as fruit juices, regular soda & desserts). Watch carbs and simple sugars. Check the blood sugar daily. Check the feet daily for skin breakdown and infection. Assessment & Plan (05/23/2023 10:25 AM CDT): Chronic problem. A1c at goal (6.0%); down from 7.0%. denies hypoglycemia Stop glimepiride at this time d/t several episodes of hypoglycemia. May need to go back up if blood sugars start to rise. Current medications: Jardiance 25mg daily Ozempic 0.5mg weekly UTD on labs. DM eye exam -12/[address] Romero in [place]. Letter sent to get copy of report. Strive for regular exercise (30min most days) and diet (get at least 4-5 servings of fruit and veggies daily, avoid processed foods, increase lean protein intake and decrease carb portions as well as fruit juices, regular soda & desserts). Watch carbs and simple sugars. Check the blood sugar daily. Check the feet daily for skin breakdown and infection. Assessment & Plan (01/22/2023 4:22 PM CDT): Hba1c was Lab Results Component Value Date HGBA1C 7.0 01/22/2023 today, indicating suboptimal DM control Goal Hba1c and blood glucose explained Diet and exercise were advised Prevention and treatment of hyypoglcyemia were discussed with the patient Blood glucose monitoring : 1-2 x day Adjustment to medications: D/c Trulicity ( SE ) Start Ozempic Samples provided Pt to call in 4 wks to let me know if he is tolerating well, before sending rx Assessment & Plan (09/27/2022 5:24 PM STAGE TECHNICIAN): Uncontrolled, worsening Risk of uncontrolled diabetes was explained Importance of exercise and diet also explained Patient encouraged to start an exercise program without least 30 minutes of daily aerobic and resistance exercise Patient reluctant to start insulin at this point Will stop Actos due to side effect Start glimepiride 2 mg daily The patient went to try Ozempic again. Start Ozempic 0.5 mg week Follow-up in 3 -4 months. Assessment & Plan (05/24/2022 12:38 PM CDT): Uncontrolled Add Actos, which would help with fatty liver as well Continue Jardiance Assessment & Plan (01/18/2022 2:36 PM CDT): Well controlled Significant SE from Trulicity and Metformin ( constipatio ) Stop Trulicity Try Ozempic If not tolerated, will start Glucotrol Assessment & Plan (11/23/2021 2:05 PM CDT): Hba1c was Lab Results Component Value Date HGBA1C 8.7 11/23/2021 today, indicating inadequate DM control Goal Hba1c and blood glucose explained Diet and exercise were advised Prevention and treatment of hyypoglcyemia were discussed with the patient Blood glucose monitoring : 1 x day Adjustment to medications: Continue Jardiance Restart Trulicity 1.5 mg weekly Then continue with 3 mg weekly Assessment & Plan (12/27/2020 4:09 PM CDT): Hba1c was Lab Results Component Value Date HGBA1C 6.9 12/27/2020 today, indicating suboptimal DM control Goals blood sugars of 120-160 and Hba1c under 7 % was explained. 1800 calorie, consistent carb diet recommended, no more than 3-45 grams of carbs per meal, avoiding concentrated sweet drinks and rapid absorption carbs. 25-45 min daily aerobic and resistance exercise recommended Blood glucose monitoring with fingers sticks, 2-3 x wk Continue with Jardiance Add Trulicity . Resolved Problems Problem Noted Date Diagnosed Date Resolved Date Tobacco abuse 03/26/2023 02/13/2024 Encounters Date Type Department Care Team Description 06/11/2025 Telephone [facility] Cardiology [address] [place] [address] Karl Jesus MD 06/08/2025 Telephone [facility] Cardiology [address] [place] [phone] Wei Abbott MD Prior Auth 06/04/2025 8:45 AM CDT Office Visit [facility] Cardiology [address], [place] [phone] Karl Jesus MD Coronary artery disease involving the [place] coronary artery of the [place] heart without angina pectoris (Primary Dx); Status post angioplasty with stent; PAD (peripheral artery disease); Hypertension associated with type 2 diabetes mellitus (HCC); History of tobacco abuse 04/27/2025 8:00 AM CDT Office Visit [facility] Cardiology at [address] [place] [phone] Wei Abbott MD Coronary artery disease involving the [place] coronary artery of [place] heart without angina pectoris (Primary Dx); Hyperlipidemia associated with type 2 diabetes mellitus (HCC); Hypertension associated with type 2 diabetes mellitus (HCC); Ischemic cardiomyopathy from Last 3 Months Surgical History Surgery Date Site/Laterality Comments KNEE ARTHROSCOPY LEG SURGERY Left OTHER SURGICAL HISTORY stent in heart ANGIOPLASTY 01/10/2023 HERNIA REPAIR 08/26/2016 LASIK 01/24/2021 Medical History Medical History Date Comments Type 2 diabetes mellitus Hyperlipidemia Liver disease ALMONTE (nonalcoholic steatohepatitis) Heart attack (HCC) 01/10/2023 Heart disease 01/10/2023 Sleep apnea 08/26/2011 Left leg claudication PAD (peripheral artery disease) Tobacco abuse 03/26/2023 Family History Medical History Relation Name Comments Alcohol abuse Father Puneet Carranza Cancer Father Puneet Carranza Diabetes Father Puneet Carranza Heart attack Father Puneet Carranza Stroke Sister Melia Carranza Relation Name Status Comments Father Puneet Carranza Mother Alive Sister Melia Carranza Social History Tobacco Use Types Packs/Day Years Used Date Smoking Tobacco: Former Cigarettes 1 39 0 08/26/1982 - 08/26/2021 Smokeless Tobacco: Never Tobacco Cessation:Counseling Given: Not Answered Comments:I have quit off and on over last couple of years. PHQ-2 Answer Date Recorded PHQ-2 Total Score (If total score is 3 or more points, staff should administer the PHQ-9) 0 02/13/2024 Personal Safety Answer Date Recorded Have you ever been in or are you currently in a harmful physical or emotional relationship or is someone making you feel afraid or unsafe? Denies 01/24/2024 Sex and Gender Information Value Date Recorded Sex Assigned at Not on file Legal Sex Male 7:37 PM STAGE TECHNICIAN Gender Identity Male 12/23/2020 1:26 PM CDT Sexual Orientation Not on file Obstetrics History Last Filed Vital Signs Vital Sign Reading Time Taken Comments Blood Pressure 110/68 06/04/2025 8:30 AM CDT Pulse 83 06/04/2025 8:30 AM CDT Temperature 36.6 C (97.9 F) 01/24/2024 7:22 AM CDT Respiratory Rate 16 06/04/2025 8:30 AM CDT Oxygen Saturation 99% 06/04/2025 8:30 AM CDT Inhaled Oxygen Concentration - - Weight 85.3 kg (188 lb) 06/04/2025 8:30 AM CDT Height 180.3 cm (5' 11) 06/04/2025 8:30 AM CDT Body Mass Index 26.22 06/04/2025 8:30 AM CDT Plan of Treatment Health Maintenance Due Date Last Done Comments Colon Cancer Screening-Colonoscopy 1971 Hepatitis C Screening 1971 Prostate Cancer Screening-PSA 1971 Regular Well Visit/Exam 18-64 1989 Pneumococcal vaccine <65 (1 of 2 - PCV) 1990 DTaP/Tdap/Td Vaccine (2 - Td or Tdap) 11/28/2020 11/28/2010, 11/10/2004, 02/18/1994 Lung Cancer Screening 2021 Zoster Vaccine (1 of 2) 2021 eGFR 01/20/2025 01/21/2024, 12/25, 02/19/2023, Additional history exists Depression Screening 02/12/2025 02/13/2024, 01/22/2023, 05/24/2022, Additional history exists Influenza Vaccine (#1) 2025 4, 06/09/2013, 06/09/2013, Additional history exists Albumin Creatinine Ratio, Urine 07/30/2025 07/30/2024, 02/19/2023, 11/22/2021 Hemoglobin A1C 07/30/2025 01/28/2025, 12/0 12/2023, 02/13/2024, Additional history exists Lipid Panel 09/10/2025 09/10/2024, 01/24, 02/19/2023, Additional history exists Foot Exam 01/28/2026 01/28/2025, 12/0 12/2023, 05/23/2023, Additional history exists Dilated Eye Exam 01/13/2027 01/13/2025, , 12/21/2022 Hepatitis B Screening Completed 11/12/2013 , 06/09/2013, 11/18/2012 Medical Devices Implanted Type Area Metal Tile Setter Device Identifier Shelf Expiration Date Model / Serial / Lot [employer] Device 10ml 5fr Closure Mynx Control 2 Mode Balloon Catheter [id number] - [id number] Implanted:Qty: 1 on 01/24/2024 by Karl Jesus MD at [facility] [employer] 07/25/2024 [id number] / [id number] Procedures Procedure Name Priority Date/Time Associated Diagnosis Comments POCT HEMOGLOBIN A1C Routine 01/28/2025 9 :06 AM CDT Type 2 diabetes mellitus with hyperglycemia, without long-term current use of insulin (HCC) HM DIABETES EYE EXAM Routine 01/13/2025 9:30 AM CDT LIPID PANEL Routine 09/10/2024 7:14 AM STAGE TECHNICIAN ALBUMIN CREATININE RATIO, URINE Routine 07/30/2024 9:00 AM STAGE TECHNICIAN Type 2 diabetes mellitus with hyperglycemia, without long-term current use of insulin (HCC) COMPREHENSIVE METABOLIC PANEL Routine 01/21/2024 12:10 PM CDT Left leg claudication PAD (peripheral artery disease) from Last 3 Months or Most Recently Relevant to Health Maintenance Results * (ABNORMAL) POCT hemoglobin A1c (01/28/2025 9:06 AM CDT) Hemoglobin A1C, POC 6.5(A) 4.0 - 5.6 % Blood 01/28/2025 9:06 AM CDT Haylee Gonzalez FLOOR NURSE POINT OF CARE TEST ORDERA BLES Final Result * HM DIABETES EYE EXAM (01/13/2025 9:30 AM CDT) Historical Provider HEALTH MAINTENANCE Final Result * Lipid panel (09/10/2024 7:14 AM STAGE TECHNICIAN) Pathologist [facility] SCRIBED Cholesterol, Total 127 0 - 200 EXTERNAL LAB SCRIBED HDL 42 40 - 100 EXTERNAL LAB SCRIBED LDL 63 0 - 100 EXTERNAL LAB SCRIBED Triglycerides 141 0 - 150 EXTERNAL LAB Blood 09/10/2024 7:14 AM STAGE TECHNICIAN Historical Provider LAB BLOOD ORDERABLES Aracelis l Result EXTERNAL LAB * Albumin Creatinine Ratio, Urine (07/30/2024 9:00 AM STAGE TECHNICIAN) Pathologist [facility] Albumin Ur <12.0 mg/L Comment: Interpretive Data No reference range established. Current interpretive data was last revised 2019. Creatinine Ur 95.2 mg/dL [facility] Comment: Interpretive Data No reference range established. Current interpretive data was last revised 2019. Albumin Creatinine Ratio, Ur <13 1 - 29 mg/g [facility]ERSON Urine 07/30/2024 9:00 AM STAGE TECHNICIAN 07/30/2024 4:27 PM STAGE TECHNICIAN Haylee Gonzalez FLOOR NURSE LAB URINE ORDERABLES Aracelis l Result [facility] [id number] Department [place] [address] * Comprehensive metabolic panel (01/21/2024 12:10 PM CDT) Glucose 88 65 - 99 mg/dL [facility] Comment: Fasting reference interval BUN 14 7 - 25 mg/dL [facility] Creatinine 0.92 0.70 - 1.30 mg/dL [facility] eGFR 100 > OR = 60 mL/min/1.7 3m2 [facility] BUN/creat ratio SEE NOTE: 6 - 22 (calc) [facility] Comment: Not Reported: BUN and Creatinine are within reference range. Sodium 137 135 - 146 mmol/L [facility] Potassium, pl 4.3 3.5 - 5.3 mmol/L [facility] Chloride 104 98 - 110 mmol/L [facility] CO2 23 20 - 32 mmol/L [facility] Calcium 9.3 8.6 - 10.3 mg/dL [facility] Protein, sr 6.6 6.1 - 8.1 g/dL [facility] Albumin 4.4 3.6 - 5.1 g/dL [facility] GLOBULIN 2.2 1.9 - 3.7 g/dL (calc) [facility] Alb/glob ratio 2.0 1.0 - 2.5 (calc) [facility] Bilirubin, total 0.4 0.2 - 1.2 mg/dL [facility] Alk phos 100 35 - 144 U/L [facility] AST 20 10 - 35 U/L [facility] ALT (SGPT) 16 9 - 46 U/L [facility] Blood 01/21/2024 12:1 0 PM CDT 01/21/2024 12:10 PM CDT us Karl Jesus MD LAB BLOOD ORDERABLES Final Resul t [facility] [address] [id number] from Last 3 Months or Most Recently Relevant to Health Maintenance Insurance [facility] Care Teams Education Finance Processor Relationship Specialty Start Date End Date Dominic Verdugo MD PCP - General Family Medicine 11/17/20
--- OUTSIDE RECORDS SUMMARY | 2025-06-17 08:57 | XMS_ITS | Clinical Summary ---
Author Organization [facility] Address [address] [place] [address] Phone Care Team Providers Care Rn Utilization Management Um Name Role Phone Dominic Verdugo MD Primary Care Provider [phone] Allergies Active Allergy Reactions Criticality Noted Date Comments Dulaglutide Other (See Comments) Medium 05/24/2022 constipation Metformin Nausea and Vomiting High 05/24/2022 Medications atorvastatin 40 mg tablet Take 40 mg by mouth daily. 9 Active montelukast (SINGULAIR) 10 mg tablet Take 10 mg by mouth daily. 0 Active pramipexole (MIRAPEX) 0.5 mg tablet Take 0.5 mg by mouth daily. 9 Active empagliflozin (JARDIANCE) 25 mg tablet Take 25 mg by mouth daily shoe sticks repairer. Active aspirin (ECOTRIN EC) 81 mg Tablet, Delayed Release (E.C.)Indications :PAD (peripheral artery disease) Take 1 Tablet (81 mg) by mouth daily. 0 Active blood sugar diagnostic Strip USE 1 STRIP TO CHECK GLUCOSE BEFORE MEAL(S) AT BEDTIME 1 Active FreeStyle Lite Strips Strip USE 1 STRIP TO CHECK GLUCOSE BEFORE MEAL(S) AT BEDTIME 1 Active dulaglutide 3 mg/0.5 mL subcutaneous pen injector 1 Active glimepiride (AMARYL) 2 mg tablet Take 2 mg by mouth daily. 3 Active Active Problems Patient Care Coordination No te Formatting of this note migh t be different from the original. [facility] - Dr. Avtar Boykin MD, FACC, [facility] - [address] [facility]: Kenroy Smalls DPM Problem Noted Date Diagnosed Date Positive cardiac stress test 01/10/2023 Overview (01/10/2023): Added automatically from request for surgery [id number] Exertional angina 01/10/2023 Overview (01/10/2023): Added automatically from request for surgery [id number] PAD (peripheral artery disease) 11/12/2019 Dyslipidemia 11/12/2019 Tobacco abuse 11/12/2019 Social History Tobacco Use Types Packs/Day Years Used Date Smoking Tobacco: Former Cigarettes 1 35 0 12/08/1984 - 12/09/2019 Smokeless Tobacco: Never Alcohol Use Standard Drinks/Week Comments Not Currently 0 (1 standard drink = 0.6 oz pur e alcohol) Sex and Gender Information Value Date Recorded Sex Assigned at Not on file Legal Sex Male 8:18 AM CDT Gender Identity Not on file Sexual Orientation Not on file Last Filed Vital Signs Vital Sign Reading Time Taken Comments Blood Pressure 118/66 12/27/2022 9:13 AM CDT Pulse 88 12/27/2022 9:13 AM CDT Temperature 36.1 C (97 F) 11/27/2019 6:35 AM CDT Respiratory Rate 17 11/27/2019 12:00 PM CDT Oxygen Saturation 98% 12/27/2022 9:13 AM CDT Inhaled Oxygen Concentration - - Weight 90.7 kg (200 lb) 12/27/2022 9:13 AM CDT Height 180.3 cm (5' 11) 12/27/2022 9:13 AM CDT Body Mass Index 27.89 12/27/2022 9:13 AM CDT Plan of Treatment Health Maintenance Due Date Last Done Comments DIABETES ANNUAL RETINAL EXAM 1989 DIABETES MICROALBUMIN ANNUAL SCREEN 1989 LDL CHOLESTEROL ANNUAL 1989 HEPATITIS B VACCINES (1 of 3 - 19+ 3-dose series) 1990 11/12/2013, 06/09/2013, 11/18/2012 COLORECTAL SCREENING 02/22/2016 Colorectal Cancer Screening 02/22/2016 FIT-DNA Q 3 years 02/22/2016 FIT/FOBT Q 1 year 02/22/2016 Flex Sig/CT Colonography Q 5 years 02/22/2016 DTAP/TDAP/TD VACCINES (2 - T d or Tdap) 11/28/2020 11/28/2010 ZOSTER VACCINE (1 of 2) 2021 DIABETES HBA1C Q 6 MONTHS 11/21/20232022, 09/27/2022, 12/27/2020 DIABETES ANNUAL FOOT EXAM 05/23/2024 05/23/2023 INFLUENZA VACCINE (#1) 2025 4, 06/09/2013, 06/09/2013, Additional history exists Medical Devices Implanted Type Area Rn Sane Device Identifier Shelf Expiration Date Model / Serial / Lot Common Iliac Stent [employer] [id number]/ 3/2020 Implanted:Qty : 1 on 11/27/2019 by Avtar Boykin MD Stent Left: Iliac Artery [employer] [id number] 05/28/2022 [id number] / [id number] / Description:common iliac Insurance [facility] [employer] [facility] Care Teams Rn Utilization Management Um Relationship Specialty Start Date End Date Dominic Verdugo MD [address] [place] [address] PCP - General Family Practice 11/03/19
--- OUTSIDE RECORDS SUMMARY | 2025-06-17 08:57 | XMS_ITS | Encounter Summary ---
Author Organization [facility] Healthcare Address [address] [place] [id number] Care Team Providers Care Pattern Room Attendant Name Role Phone Dominic Verdugo MD Primary Care Provider + [phone] Encounter Details Date Type Department Care Team (Late st Contact Info) Description 06/11/2025 Telephone [facility] Cardiology [address] [place] [address] Karl Jesus MD [address] [facility] [place] [address] [facility] [place] [address] [place] [address] Social History Tobacco Use Types Packs/Day Years Used Date Smoking Tobacco: Former Cigarettes 1 39 0 08/26/1982 - 08/26/2021 Smokeless Tobacco: Never Comments:I have quit off and on over [...] on file Legal Sex Male 7:37 PM [employer] Gender Identity Male 12/23/2020 1:26 PM CDT Sexual Orientation Not on file documented as of this encounter Miscellaneous Notes * Telephone Encounter - Kayley Linares - 06/11/2025 12:03 PM CDT Enrique from called in and needs prior auth for the patients ultrasound. She gave the code [id number] that will need to be used. Please advise. Thank you. Contact : [phone] documented in this encounter Plan of Treatment Not on file documented as of this encounter Visit Diagnoses Not on filedocumented in this encounter Care Teams Pattern Room Attendant Relationship Specialty Start Date End Date Dominic Verdugo MD PCP - General Family Medicine 11/17/20 documented as of this encounter
== END 2025-06-17 08:43 | disposition home or self-care (01) ==
PROVIDERS: PCP Family Medicine; Visit Provider Internal Medicine Cardiovascular Disease
DX: I73.9 Peripheral vascular disease, unspecified (principal)
CPT/HCPCS: 93923